=== PATIENT | female | born 1985 | race Caucasian/White ===

== ENCOUNTER 2021-02-02 08:53 | Emergency (ER) | payer MEDICAID, SELFPAY ==
[2021-02-02 09:14] VITALS: BP 128/80; PULSE 74; RESP 18; TEMP 36.2; O2SAT 98; BMI 31.0
--- NOTE | 2021-02-02 10:20 | ED.GENADULT ---
HPI - General Adult General Chief complaint: Extremity Injury, Lower Stated complaint: BACK PAIN Time Seen by Provider: 02/02/21 10:15 Source: patient Limitations: no limitations History of Present Illness HPI narrative: 35-year-old female is here today for complaining of lower back pain. Patient reports that she has been working at [employer] standing every day. Patient reports that the pain started with her left foot now the pain is in lower lumbar region bilaterally. Patient denies any injury, fall. Patient denies any urinary or fecal incontinence. Patient reports that she has been taking Tylenol without any effect. Patient reports that she has been dealing with this pain for over a month. Onset (ago): week(s) Location: back Radiation: extremity Severity: moderate Related Data Previous Rx's Medication Instructions Recorded cyclobenzaprine 10 mg tablet 10 mg PO QAM #10 tab 02/02/21 diazepam 5 mg tablet (Valium) 5 mg PO BEDTIME PRN #5 tab 02/02/21 Allergies Allergy/AdvReac Type Severity Reaction Status Date / Time No Known Allergies [NKA] Allergy Verified 02/02/21 09:13 Review of Systems Review of Systems: Constitutional : No Weight loss, No Fever, No Chills, No Night Sweats, No Fatigue, No Malaise ENT/Mouth : No Hearing loss, No Ear Pain, No Nasal Congestion, No Sinus Pain, No Hoarseness, No sore throat, No Rhinorrhea, No Swallowing Difficulty Eyes: No Eye Pain, No Swelling, No Redness, No Foreign Body, No Discharge, No Vision Changes Cardiovascular : No Chest Pain, No SOB, No Dyspnea on Exertion, No Orthopnea, No Edema, No Palpitations Respiratory : No Cough, No Sputum, No Wheezing, No Smoke Exposure, No Dyspnea Gastrointestinal : No Nausea, No Vomiting, No Diarrhea, No Constipation, No abdominal Pain, No Hematochezia, No Melena Genitourinary : no irregular bleeding, No Dysuria, No Urinary Frequency, No Hematuria, No Urinary Incontinence, No Urgency, No Flank Pain, No Urinary Flow Changes, No Hesitancy Musculoskeletal : No joint pain, Myalgias, No Joint Swelling Skin : No Skin Lesions, No rash Neuro : No Weakness, No Numbness, No Paresthesias, No Loss of Consciousness, No Dizziness, No Headache Yes all other systems are reviewed and are negative [facility] Past Medical History Medical History (Updated 02/02/21 @ 10:31 by Agustina Moreira [facility]) Patient denies medical problems Social History Social History Advance Directives: No Advance Directives Information Provided: No Patient : No Physical Exam Vital Signs: Vital Signs: Last Vital Signs Temp 97.2 F 02/02/21 09:14 Pulse 74 02/02/21 09:14 Resp 18 02/02/21 09:14 BP 128/80 02/02/21 09:14 Pulse Ox 98 02/02/21 09:14 Body Mass Index 31.0 Const: General: healthy appearing, no acute distress and well developed Nutritional Appearance: well nourished Orientation/consciousness: patient oriented x3 HENMT: Head: Yes normal to inspection, Yes normocephalic and Yes atraumatic Neck: Neck: Yes normal visual inspection, Yes full ROM and Yes trachea midline Thyroid: Thyroid normal Resp: Auscultation: clear to auscultation bilaterally Cardio: Rate: regular rate Rhythm: regular rhythm Heart sounds: S1 normal heart sound present GI: Inspection: Yes normal to inspection and No distended Palpation (GI): Soft to palpation, nontender, no guarding and No hepatosplenomegaly present Auscultation: normal bowel sounds : General: Yes no CVA tenderness Back/Spine/Pelvis: Back: no CVA tenderness Cervical Spine: normal cervical lordosis and cervical ROM normal Thoracic/Lumbar Spine: thoracic and lumbar spine normal to inspection and paraspinal muscle tenderness (Lower back bilaterally L>R) Skin: General skin exam: elasticity normal, turgor normal and dry skin Neuro: General: patient oriented x3 Extrem: General: Yes normal to inspection, Yes full ROM and Yes capillary refill normal Course Course Course Narrative: 35-year-old female with lower back pain. Patient reports that this pain started over a month ago. She states the pain started in her left foot now the pain is in lower back. Upon exam patient has a paraspinal muscle tenderness more on the left than the right. Took Tylenol at home. Denies any injury to this area. Patient is standing on her feet all day at work. Most likely her pain is from compensating and straining. Will send her home with muscle relaxer. I will send her home with cyclobenzaprine so she can take it in the morning and Valium she can take it at night. Patient was also instructed not to drive while taking this medication. Patient will need to follow-up with her PCP for physical therapy Discharge Plan Discharge Clinical Impression: Muscle strain Back pain Qualifiers: Back pain location: low back pain Chronicity: chronic Back pain laterality: bilateral Sciatica presence: unspecified whether sciatica present Qualified Code(s): M54.50 - Low back pain, unspecified Patient Disposition: Home, Self-Care Instructions: Low Back Strain (ED), Back Pain (ED), Lower Back Exercises (ED) Additional Instructions: You were seen here today for back pain and left leg pain. You are given medication that will help you with your muscle pain. Make sure you do not drive while taking this medication. Please follow-up with your primary care provider for possible physical therapy you may return to emergency department if her symptoms will get worse or if your experience any additional concerning symptoms Prescriptions: New cyclobenzaprine 10 mg tablet 10 mg PO QAM Qty: 10 RF: 0 diazepam [Valium] 5 mg tablet 5 mg PO BEDTIME PRN (Reason: muscle spasm) Qty: 5 RF: 0 Referrals: Allegra Yip MD [Primary Care Provider] - 2 days Stand Alone Forms: Work/School Release Interventions: ED Discharge Assessment Last Done: 02/02/21 10:49 Discharge Date/Time: 02/02/21 10:53
[2021-02-02] MEDS: Ibuprofen 600 MG TABLET PO (10:48)
== END 2021-02-02 10:53 | disposition home or self-care (01) ==
PROVIDERS: Emergency Provider Emergency Medicine; PCP Family Medicine
DX: S39.012A Strain of muscle, fascia and tendon of lower back, initial encounter (principal); X58.XXXA Exposure to other specified factors, initial encounter; Y93.9 Activity, unspecified; Y92.9 Unspecified place or not applicable; Y99.9 Unspecified external cause status
CPT/HCPCS: 99283

== ENCOUNTER 2021-02-13 12:36 | Outpatient (REF) | payer MEDICAID, SELFPAY ==
--- NOTE | ~2021-02-13 | XR_ITS ---
EXAMINATION: XR LUMBOSACRAL SPINE WITH OBLIQUES CLINICAL INFORMATION: Low back pain with left-sided sciatica. COMPARISON: None TECHNIQUE: AP, both oblique, and lateral views of the lumbar spine. Lateral view of the lumbosacral junction. FINDINGS: The vertebral bodies and posterior elements are normal. The disc spaces are preserved and the vertebral alignment is normal. The paraspinal soft tissues are normal. XR/XR lumbar spine 4V min IMPRESSION: 1. Unremarkable lumbar spine.
== END 2021-02-13 12:37 | disposition home or self-care (01) ==
LOC: HO.XRAY 12:36
PROVIDERS: PCP Family Medicine; Visit Provider Family Medicine
DX: M54.42 Lumbago with sciatica, left side (principal)
CPT/HCPCS: 72110

== ENCOUNTER 2021-03-17 14:00 | Outpatient (RCR) | payer MEDICAID, SELFPAY | END 2021-04-04 12:36 | disposition home or self-care (01) | LOC: HO.PT 14:00 | PROVIDERS: PCP Family Medicine; Visit Provider Family Medicine | DX: M72.2 Plantar fascial fibromatosis (principal); M54.42 Lumbago with sciatica, left side | CPT/HCPCS: 97110; 97161 ==

== ENCOUNTER 2021-09-07 08:35 | Emergency (ER) | payer MEDICAID, SELFPAY ==
--- NOTE | ~2021-09-07 | US_ITS ---
EXAMINATION: US PELVIS CLINICAL INFORMATION: Adnexal tenderness. COMPARISON: None TECHNIQUE: Ultrasound of the pelvis is performed using both transabdominal and transvaginal transducers along with Doppler. Transvaginal imaging is performed due to inadequate visualization transabdominally. FINDINGS: UTERUS: The uterus is anteverted anteflexed and measures 8.5 cm in length, 3.7 cm in AP and 4.7 cm in transverse dimension. The double wall endometrial thickness is 1.0 cm. The uterus is smooth in contour and has normal myometrial echogenicity. No visible fibroid. There are small nabothian cysts seen in the cervix. ADNEXA: Both ovaries are visualized. There is normal color flow to the adnexa. There is no ovarian torsion. There is no pelvic ascites or fluid collection. Right ovary measures 4.8 x 4.1 x 4.5 cm and volume 46.4 mL. There is an anechoic cyst measuring 4.6 x 3.4 x 4.1 cm with septation. Left ovary measures 2.1 x 1.8 x 2.0 cm. It appears unremarkable. There is mild left adnexal fullness. US/US pelvic ovarian doppler IMPRESSION: Unremarkable uterus. Small nabothian cysts in the cervix. Complex 4.6 cm cyst right ovary. Unremarkable left ovary.
--- NOTE | ~2021-09-07 | US_ITS ---
EXAMINATION: US PELVIS CLINICAL INFORMATION: Adnexal tenderness. COMPARISON: None TECHNIQUE: Ultrasound of the pelvis is performed using both transabdominal and transvaginal transducers along with Doppler. Transvaginal imaging is performed due to inadequate visualization transabdominally. FINDINGS: UTERUS: The uterus is anteverted anteflexed and measures 8.5 cm in length, 3.7 cm in AP and 4.7 cm in transverse dimension. The double wall endometrial thickness is 1.0 cm. The uterus is smooth in contour and has normal myometrial echogenicity. No visible fibroid. There are small nabothian cysts seen in the cervix. ADNEXA: Both ovaries are visualized. There is normal color flow to the adnexa. There is no ovarian torsion. There is no pelvic ascites or fluid collection. Right ovary measures 4.8 x 4.1 x 4.5 cm and volume 46.4 mL. There is an anechoic cyst measuring 4.6 x 3.4 x 4.1 cm with septation. Left ovary measures 2.1 x 1.8 x 2.0 cm. It appears unremarkable. There is mild left adnexal fullness. US/US pelvic and transvaginal IMPRESSION: Unremarkable uterus. Small nabothian cysts in the cervix. Complex 4.6 cm cyst right ovary. Unremarkable left ovary.
[2021-09-07 09:05] VITALS: BP 131/91; PULSE 50; RESP 16; TEMP 36.4; O2SAT 100; BMI 29.2
--- NOTE | 2021-09-07 10:55 | ED.GENADULT ---
HPI - General Adult General Chief complaint: General Medical Stated complaint: vag pain Time Seen by Provider: 09/07/21 10:09 Source: patient Mode of arrival: ambulatory Limitations: no limitations History of Present Illness HPI narrative: 36-year-old female presents for 2 days of vaginal itching and vaginal burning. States that today when she wiped after urinating that the toilet paper was streaked pink. Denies dysuria, urinary frequency or urgency. Endorses low pelvic pain. Patient did take Monistat for 2 days, but states that her vaginal discharge has been yellow greenish, and foul smelling. She is sexually active and not on control. She had a tubal ligation 10 years ago. She has had the same sex partner for the last 6 months. She is . Related Data Previous Rx's Medication Instructions Recorded cyclobenzaprine 10 mg tablet 10 mg PO QAM #10 tab 02/02/21 diazepam 5 mg tablet (Valium) 5 mg PO BEDTIME PRN #5 tab 02/02/21 cephalexin 500 mg capsule 500 mg PO QID 5 Days #20 cap 09/07/21 doxycycline hyclate 100 mg tablet 100 mg PO BID 7 Days #14 tab 09/07/21 Allergies Allergy/AdvReac Type Severity Reaction Status Date / Time No Known Allergies [NKA] Allergy Verified 02/02/21 09:13 Review of Systems Constitutional: Constitutional: Denies body ache(s), Denies chills, Denies fatigue, Denies fever(s), Denies headache(s), Denies malaise and Denies weakness Eyes: Eyes: Denies diplopia ENT: Denies vertigo, Denies dizziness, Denies otalgia, Denies headache(s), Denies mouth pain, Denies post nasal drip, Denies sinus pain, Denies sinus pressure, Denies sore throat and Denies throat swelling Cardiovascular: Cardiovascular: Denies chest pain, Denies syncope, Denies leg edema, Denies lightheadedness, Denies Loss of Consciousness, Denies palpitations and Denies dyspnea Respiratory: Respiratory: Denies chest congestion, Denies cough and Denies dyspnea Gastrointestinal: Gastrointestinal: Denies abdominal pain, Denies hematochezia, Denies constipation, Denies diarrhea and Denies vomiting Genitourinary: Genitourinary: Reports abnormal vaginal bleeding, Denies genital pruritis, Denies dysmenorrhea, Denies dysuria, Reports pelvic pain, Denies flank pain, Denies urinary urgency, Reports vaginal discharge, Reports vaginal odor and Reports vaginal pruritus Musculoskeletal: Musculoskeletal: Reports no additional musculoskeletal complaints Neurologic: Denies confusion, Denies vertigo, Denies dizziness, Denies syncope, Denies headache(s) and Denies weakness Psychiatric: Psychiatric: Denies anxiety, Denies confusion and Denies depression Endocrine: Endocrine: Denies fatigue and Denies palpitations Allergic/Immunologic: Allergic/Immunologic: Denies throat swelling PMFSH Past Medical History Medical History (Updated 09/07/21 @ 14:26 by MINDY Bryant) Patient denies medical problems Social History Social History Advance Directives: No Advance Directives Information Provided: No Physical Exam ED Vital Signs: Vital Signs - 24 hr 09/07/21 09:05 Temperature 97.6 F Pulse Rate 50 Respiratory Rate 16 Blood Pressure 131/91 H Pulse Oximetry 100 BMI result Body Mass Index 29.2 Const General: No confusion Nutritional Appearance: well nourished Orientation/consciousness: No confusion Limitations: no limitations HENMT Head: Yes normal to inspection, Yes normocephalic and Yes atraumatic Ears: hearing grossly normal bilaterally, external ears normal, TM's normal bilaterally and EAC's normal General nose exam: Normal external nose present Face and sinus: Yes normal facial exam and Yes sinuses nontender Mouth: Normal oral and palatal mucosa present Throat: Yes posterior oropharynx normal Eyes Conjunctivae: conjunctivae normal Pupils: Equal, round and reactive pupils present EOM: EOMs intact bilaterally Neck Neck: Yes full ROM, Yes no lymphadenopathy and Yes supple Resp Effort & Inspection: normal respiratory effort and able to speak in complete sentences Auscultation: clear to auscultation bilaterally, no crackles, no rales, no rhonchi and no wheezes Cardio Rate: regular rate Rhythm: regular rhythm Heart sounds: S1 normal heart sound present and S2 normal heart sound present GI Inspection: Yes normal to inspection Palpation (GI): Soft to palpation, nontender, no guarding and not rigid Percussion: Yes normal to percussion Auscultation: normal bowel sounds General: Yes no CVA tenderness External Female Exam: normal external appearance and normal appearance of the urethra Speculum Exam - Vagina: normal appearance of the vagina and normal palpation Speculum Exam - Cervix: normal appearance of the cervix and normal palpation Bimanual exam- vagina & uterus: normal bimanual exam, normal palpation, normal palpation and no cervical motion tenderness Bimanual Exam- Adnexa, other: No adnexal tenderness Back/Spine/Pelvis Back: no CVA tenderness Skin General skin exam: no rashes or lesions noted Neuro General: No confusion Cranial nerves: Yes Equal, round and reactive pupils present Extrem General: Yes normal to inspection and Yes full ROM Psych Appearance: grossly normal Affect: normal affect Attitude: cooperative Thought process: Normal thought process present Course Course Course Narrative: 36-year-old female presents for 2 days of vaginal pain, discharge, and pink blood on toilet paper today. Patient's last menstrual period was August 29, only lasted for 3 days, her menstrual period usually lasts for 6 days. On exam, patient is well-appearing, stable vitals, no CVA tenderness, she is tender in her lower abdomen and pelvis. Will do pelvic exam, get urine, U preg, BV, Trichomonas, yeast, chlamydia, gonorrhea testing Reevaluation(s) Reevaluation #1: Pelvic exam unremarkable, patient had no adnexal tenderness, no cervical motion tenderness, vaginal discharge was scant and patient did have pink discharge Reevaluation #2: Patient has +2 leukocyte esterase and +2 blood in her urine. She is not . She has no Trichomonas or yeast. Ultrasound shows a cyst in her right ovary. Will treat patient for gonorrhea and chlamydia, will also treat for UTI. Will refer patient to Gynecology for abnormal vaginal bleeding Medical Decision Making Lab Data Labs: Lab Results 09/07/21 09/07/21 09/07/21 Range/Units 11:13 11:13 11:13 Urine Color YELLOW Urine Appearance CLEAR Urine pH 6.0 (5.0-8.0) Ur Specific [place] 1.020 (1.005-1.025) Urine Protein NEG (NEG-TRACE) MG/DL Urine Glucose (UA) NEG (NEG) MG/DL Urine Ketones NEG (NEG) MG/DL Urine Blood 2+ H (NEG) Urine Nitrite NEG (NEG) Ur Leukocyte Esterase 2+ H (NEG) Urine RBC 1-4 (0) /HPF Urine WBC 1-4 (0-4) /HPF Ur Squamous Epith Cells 3+ /LPF Urine Bacteria TRACE /LPF Urine Test NEGATIVE (NEGATIVE) Chlam trachomat DNA PCR NOT DETECTED (Not Detect.) N.gonorrhoeae DNA (PCR) NOT DETECTED (Not Detect.) 09/07/21 Range/Units 12:07 Urine Color Urine Appearance Urine pH (5.0-8.0) Ur Specific [place] (1.005-1.025) Urine Protein (NEG-TRACE) MG/DL Urine Glucose (UA) (NEG) MG/DL Urine Ketones (NEG) MG/DL Urine Blood (NEG) Urine Nitrite (NEG) Ur Leukocyte Esterase (NEG) Urine RBC (0) /HPF Urine WBC (0-4) /HPF Ur Squamous Epith Cells /LPF Urine Bacteria /LPF Urine Test (NEGATIVE) Chlam trachomat DNA PCR TNP (Not Detect.) N.gonorrhoeae DNA (PCR) TNP (Not Detect.) Discharge Plan Discharge Clinical Impression: UTI (urinary tract infection), Concern about STD in female without diagnosis, Abnormal vaginal bleeding Patient Disposition: Home, Self-Care Instructions: Urinary Tract Infection in Women (ED) Additional Instructions: Please call park interpretive specialist at [phone] I have referred you to them, they should be calling you. I want you evaluated for your vaginal bleeding and ovarian cyst. You have no Trichomonas or vaginal yeast today. The test for gonorrhea and chlamydia will return in a few days, until then we will treat her with doxycycline. If you call in those tests have come back negative you can stop your doxycycline. However I do want you to continue to take your cephalexin. You have a urinary tract infection and this is to treat the urinary tract infection. Please return to emergency room for any new or concerning symptoms. Prescriptions: New doxycycline hyclate 100 mg tablet 100 mg PO BID 7 Days Qty: 14 0RF cephalexin 500 mg capsule 500 mg PO QID 5 Days Qty: 20 0RF No Action cyclobenzaprine 10 mg tablet 10 mg PO QAM Qty: 10 0RF diazepam [Valium] 5 mg tablet 5 mg PO BEDTIME PRN (Reason: muscle spasm) Qty: 5 0RF Referrals: Eliseo Laurent MD [Physician] - Interventions: ED Discharge Assessment Last Done: 09/07/21 14:46 Discharge Date/Time: 09/07/21 14:48
[2021-09-07 12:19] LABS: Appearance Urine CLEAR; Color Urine YELLOW; Glucose Urine UA NEG (NEG); Leukocyte Esterase Urine 2+ (NEG); Nitrite Urine NEG (NEG); UACC Culture Trigger YES; UPreg QC Valid YES; Urine Blood 2+ (NEG); Urine Ketones NEG (NEG); Urine Pregnancy NEGATIVE (NEGATIVE); Urine Protein NEG (NEG-TRACE)
[2021-09-07 13:06] LABS: Squamous Epithelial Cell Urine 3+ /LPF
[2021-09-07 13:08] LABS: Bacteria Urine TRACE /LPF
[2021-09-07 13:50] LABS: CT PCR NOT DETECTED (Not Detect.); NG PCR NOT DETECTED (Not Detect.)
[2021-09-07] MEDS: cefTRIAXone sodium 500 MG, Lidocaine HCl 1 % MPF 1 ML IM (14:39)
[2021-09-08 10:55] LABS: BV Int Neg Control Negative (Negative); BV Int Pos Control Positive (Positive)
== END 2021-09-07 14:48 | disposition home or self-care (01) ==
PROVIDERS: Physician Assistant; Emergency Provider Emergency Medicine; PCP Family Medicine
DX: N39.0 Urinary tract infection, site not specified (principal); N93.9 Abnormal uterine and vaginal bleeding, unspecified; N83.201 Unspecified ovarian cyst, right side; Z20.2 Contact with and (suspected) exposure to infections with a predominantly sexual mode of transmission; Z98.51 Tubal ligation status
CPT/HCPCS: 76830; 76856; 81001; 81003; 81025; 87086; 87480; 87491; 87510; 87591; 87660; 93975; 96372; 99281; 99284; J0696

== ENCOUNTER → 2021-09-15 08:40 | Outpatient (BNVA) | payer MEDICAID, SELFPAY | PROVIDERS: PCP Family Medicine; Visit Provider Advanced Practice Midwife | DX: N83.291 Other ovarian cyst, right side (principal) | CPT/HCPCS: 81025; 99202 ==

== ENCOUNTER 2021-10-20 15:07 | Outpatient (REF) | payer MEDICAID, SELFPAY ==
--- NOTE | ~2021-10-20 | US_ITS ---
EXAMINATION: US PELVIS CLINICAL INFORMATION: Right sided ovarian cyst COMPARISON: Previous pelvic ultrasound August 2021 TECHNIQUE: Ultrasound of the pelvis is performed using both transabdominal and transvaginal transducers along with Doppler. Transvaginal imaging is performed due to inadequate visualization transabdominally. FINDINGS: Uterus: The uterus is anteverted and measures 10 x 4.7 x 5 cm. The double wall endometrial thickness is 4 mm. The uterus is smooth in contour and has normal myometrial echogenicity. No visible fibroid. There are nabothian cysts in the cervix. Adnexa: Both ovaries are visualized. There is no pelvic ascites or fluid collection. There are prominent pelvic vessels questionable for pelvic congestion, left greater than right. Right ovary measures 3.5 x 2.1 x 2.2 cm. there is a 2.1 x 1.5 x 1.8 cm simple right ovarian cyst. There is a 1.2 x 0.7 x 0.4 cm adjacent minimally complex cyst with slightly thickened wall and septation. The previously identified 4.6 x 3.4 x 4.1 cm slightly complex right ovarian cyst is no longer seen. Left ovary measures 3.1 x 1.6 x 2.4 cm. US/US pelvic and transvaginal IMPRESSION: Normal-appearing uterus and left ovary. 2 small right ovarian cysts.
== END 2021-10-20 15:08 | disposition home or self-care (01) ==
LOC: HO.US 15:07
PROVIDERS: Visit Provider Advanced Practice Midwife
DX: N83.291 Other ovarian cyst, right side (principal)
CPT/HCPCS: 76830; 76856

== ENCOUNTER → 2021-11-06 09:00 | Outpatient (BNVA) | payer MEDICAID, SELFPAY | PROVIDERS: PCP Family Medicine; Visit Provider Advanced Practice Midwife | DX: N83.291 Other ovarian cyst, right side (principal) | CPT/HCPCS: 99212 ==

== ENCOUNTER 2023-05-19 11:06 | Emergency (ER) | payer MEDICAID, SELFPAY ==
--- NOTE | ~2023-05-19 | CT_ITS ---
CT head/brain wo IV con CLINICAL INFORMATION: Reason for Exam dizzness COMPARISON: No prior CT scan available for comparison. TECHNIQUE: Department standard protocol. This CT examination was performed using dose optimization techniques as appropriate, variously including the following: *Automated exposure control *Adjustment of mA and/or kV according to patient size (this includes techniques or standardized protocols for targeted exams where dose is matched to indication/reason for exam; i.e. extremities or head) *Use of iterative reconstruction technique DLP: 650zzz mGy-cm FINDINGS: CEREBRAL HEMISPHERES: There is no evidence of intra-axial or extra-axial mass, hemorrhage or acute infarct. BRAIN PARENCHYMA: Normal adams-white matter differentiation. SUBDURAL SPACE: No bleed. BASAL GANGLIA AND PINEAL GLAND: Unremarkable VENTRICLES: Symmetric and normal in size. CEREBELLUM AND BRAINSTEM: No space-occupying mass, hemorrhage or acute infarct. CEREBELLOPONTINE ANGLES: No lesion found. ORBITS: No intraorbital mass. VESSELS: Unremarkable SKULL BASE: Unremarkable INCLUDED SINUSES AT SKULL BASE: Clear SKULL AND SKIN: No fracture or bone lesion found. CT/CT head/brain wo IV con IMPRESSION: No CT evidence of intracranial space-occupying mass, bleed or infarct.
[2023-05-19 11:17] VITALS: BP 140/86; BP 142/90; PULSE 81; PULSE 85; RESP 16; TEMP 36.5; O2SAT 100; BMI 31.3
--- NOTE | 2023-05-19 11:29 | ED_ITS ---
HPI - General Adult General Chief complaint: Dizziness Stated complaint: DIZZINESS NOT FEELING WELL Time Seen by Provider: 05/19/23 11:15 Source: patient and EMS Mode of arrival: EMS History of Present Illness HPI narrative: This is a 37 years old female brought in by ambulance with a chief complaint of dizziness near syncopal episode. 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 911 was called. Patient denies any major medical problem she is feeling better now Onset (ago): hour(s) (1) Radiation: non-radiation Severity: moderate Relieving factors: none Exacerbating factors: none Associated symptoms: denies other symptoms Related Data Home Medications Medication Instructions Recorded Confirmed No Known Home Meds 11/06/21 11/06/21 Allergies Allergy/AdvReac Type Severity Reaction Status Date / Time No Known Allergies [NKA] Allergy Verified 05/19/23 11:17 Review of Systems 2 ENT: Reports system reviewed and no additional complaints, except as documented Gastrointestinal: Gastrointestinal: Reports no additional gastrointestinal complaints Neurologic: Reports system reviewed and no additional complaints, except as documented [facility] Past Medical History Source: unable to obtain Onset Date is defined in the Problem List Problems that require an onset date and time if occurred within 24 hrs of arrival to the ED Aortic Dissection and Rupture; Neurologic impairment; Cardiopulmonary Arrest; Endotracheal Intubation; Insertion or Replacement of Mechanical Circulatory Assist Device Medical History Patient denies medical problems Surgical History H/O tubal ligation Social History Social History Alcohol intake: current Alcohol intake frequency: holidays/special occasions only Patient Tobacco Use Status: Never used Tobacco Smoked in Last 30 Days: No Use of substances other than those prescribed or required for medical reasons: No Advance Directives: No Advance Directives Information Provided: No Patient : No Physical Exam ED Vital Signs: Vital Signs - 24 hr 05/19/23 11:17 05/19/23 14:24 Temperature 97.7 F 98.5 F Pulse Rate 85 92 Respiratory Rate 16 16 Blood Pressure 140/86 H 138/74 Pulse Oximetry 100 99 Oxygen Delivery Method Room Air Room Air BMI result Body Mass Index 31.3 Const General: cooperative Nutritional Appearance: well nourished Orientation/consciousness: patient oriented x3 Limitations: no limitations HENMT Head: Yes normal to inspection General nose exam: Normal nares present Face and sinus: Yes normal facial exam Mouth: Normal oral and palatal mucosa present Teeth and gingiva: dentition normal Throat: Yes posterior oropharynx normal Neck Neck: Yes normal visual inspection Chest Chest palpation & inspection: normal inspection of the chest Breast/axilla inspection: normal inspection of the breasts Cardio Jugular venous distension: no JVD Rate: regular rate Rhythm: regular rhythm GI Inspection: Yes normal to inspection Palpation (GI): Soft to palpation, not firm and nontender Auscultation: normal bowel sounds Skin General skin exam: no rashes or lesions noted Lesions: no lesions Rashes: no rashes Neuro General: patient oriented x3 Extrem General: Yes normal to inspection Left upper extremity: full ROM Right lower extremity: normal to inspection Course Reevaluation(s) Reevaluation #1: Feels much better asymptomatic at this time ambulatory to the bathroom without any problem anticipate discharge Medications Administered Discontinued Medications Generic Name Dose Route Start Last Admin Trade Name Freq PRN Reason Stop Dose Admin Acetaminophen 975 mg 05/19/23 12:51 05/19/23 12:56 Acetaminophen 325 Mg Tablet PO 05/19/23 12:52 975 mg ONCE ONE Administration Medical Decision Making Medical Decision Making [facility] Narrative: Patient presented to emergency room with a chief complaint of dizziness near syncopal episode while at work she was observed in the emergency room several hours in the air sampling and monitoring she remained stable blood work was normal including troponin ST-T also was normal as 15:44 much better Differential Diagnosis Differential Diagnoses: The differential diagnosis associated with the presentation includes Near syncopal episode/vasovagal syncope acute NC ectopic Lab Data [facility] Lab Attestation statement: I reviewed the patient's lab results. 05/19/23 11:45 05/19/23 11:45 Labs: Lab Results 05/19/23 Range/Units 11:45 WBC 6.6 (4.8-10.8) X10*3/uL RBC 4.19 L (4.20-5.50) X10*6/uL Hgb 12.5 (12.0-16.0) g/dl Hct 37.4 (37.0-47.0) % MCV 89.3 (80.0-98.0) fL MCH 29.8 (27.0-33.0) pg MCHC 33.4 (31.0-35.0) g/dl RDW 13.3 (11.0-16.0) % Plt Count 231 (160-400) X10*3/uL MPV 8.8 L (9.4-12.3) fL Immature Gran % (Auto) 0.2 (0.0-0.4) % Neut % (Auto) 64.2 (45-73) % Lymph % (Auto) 27.5 (20-40) % [place] % (Auto) 7.1 (2-11) % Eos % (Auto) 0.5 (0-4) % Baso % (Auto) 0.5 (0-2) % Lymph # (Auto) 1.8 (1.2-4.9) X10*3/uL [place] # (Auto) 0.5 (0.1-1.2) X10*3/uL Eos # (Auto) 0.0 (0.0-0.4) X10*3/uL Baso # (Auto) 0.0 (0.0-0.2) X10*3/uL Abs Immat Gran (auto) 0.01 (0.00-0.03) X10*3/uL Absolute Neuts (auto) 4.3 (2.0-8.3) x10*3/uL Absolute Nucleated RBC 0.000 (0.0-0.012) X10*3/uL Nucleated RBC % (auto) 0.0 (0.0-0.2) /100WBC Sodium 141 (135-145) mmol/L Potassium 4.5 (3.3-5.1) mmol/L Chloride 112 H (96-108) mmol/L Carbon Dioxide 20 L (22-29) mmol/L Anion Gap 14 (12-20) BUN 14 (9-16) mg/dL Creatinine 0.74 (0.5-1.4) mg/dL Estim Creat Clear Calc 120.4 Estimated GFR > 60 Random Glucose 106 (60-115) mg/dL Calcium 9.5 (8.4-10.2) mg/dL Total Bilirubin 0.3 (0.0-1.0) mg/dL AST 22 (5-31) U/L ALT 22 (0-31) U/L Alkaline Phosphatase 62 (39-117) U/L Troponin I High Sens < 2.7 (<3.5-17.0) ng/L Total Protein 8.2 H (6.5-8.0) g/dL Albumin 4.3 (3.5-5.0) g/dL Beta HCG, Quant < 2 mIU/mL Independent Interpretation I performed an independent interpretation of an: EKG Interpretation: Eye patch Ramírez reviewed the EKG normal sinus rhythm rate [address]-T changes Independent Historian Clinical information obtained from an independent historian. History obtained from or confirmed by: EMS Discharge Plan Discharge Clinical Impression: Near syncope Patient Disposition: Home, Self-Care Instructions: Near Syncope (ED) Prescriptions: No Action No Known Home Meds Referrals: Allegra Yip MD [Primary Care Provider] - 2 days Stand Alone Forms: Work/School Release Interventions: ED Discharge Assessment Last Done: 05/19/23 16:06 Discharge Date/Time: 05/19/23 16:09
--- NOTE | 2023-05-19 11:42 | ECG_ITS ---
Test Reason : CHEST PAIN Blood Pressure : / mmHG Vent. Rate : 074 BPM Atrial Rate : 074 BPM P-R Int : 168 ms QRS Dur : 090 ms QT Int : 404 ms P-R-T Axes : 051 005 016 degrees QTc Int : 448 ms Normal sinus rhythm Normal ECG When compared with ECG of 06-APR-2015 21:20, No significant change was found Referred By: Juan Devlin Electronically Signed By:Humberto De La Garza
[2023-05-19 11:50] LABS: MANUAL DIFF FLAG NO
[2023-05-19 11:51] LABS: Basophils Percent Auto 0.5 % (0-2); Eosinophils Percent Auto 0.5 % (0-4); Hematocrit 37.4 % (37.0-47.0); Hemoglobin 12.5 g/dl (12.0-16.0); Imm Gran Abs Auto 0.01 X10*3/uL (0.00-0.03); Imm Gran Pct Auto 0.2 % (0.0-0.4); Lymphocytes Absolute Auto 1.8 X10*3/uL (1.2-4.9); Lymphocytes Percent Auto 27.5 % (20-40); Mean Corpuscular HGB Conc 33.4 g/dl (31.0-35.0); Mean Corpuscular Hemoglobin 29.8 pg (27.0-33.0); Mean Corpuscular Volume 89.3 fL (80.0-98.0); Mean Platelet Volume 8.8 fL (9.4-12.3); Monocytes Absolute Auto 0.5 X10*3/uL (0.1-1.2); Monocytes Percent Auto 7.1 % (2-11); Neutrophils Absolute Auto 4.3 x10*3/uL (2.0-8.3); Neutrophils Percent Auto 64.2 % (45-73); Platelet Count 231 X10*3/uL (160-400); Red Blood Count 4.19 X10*6/uL (4.20-5.50); Red Cell Distribution Width 13.3 % (11.0-16.0); White Blood Count 6.6 X10*3/uL (4.8-10.8)
--- NOTE | 2023-05-19 11:51 | PC.NURSE ---
a&ox4, vss and up to date. pt presents to the ED d/t sudden onset dizziness/lightheadedness/blurred vision/nausea. pt denies vomiting/diarrhea. pt states she was at work when the symptoms appeared out of nowhere when bending over/standing up repeatedly. pt c/o 8/10 RUBY at this time. no sob/wob noted. respirations even and unlabored. labs obtained/sent to lab by tech. pt aware of plan of care at this time. plan of care ongoing. call walker placed within reach.
[2023-05-19 12:12] LABS: Alanine Aminotransferase 22 U/L (0-31); Albumin Level 4.3 g/dL (3.5-5.0); Alkaline Phosphatase 62 U/L (39-117); Anion Gap 14 (12-20); Aspartate Amino Transferase 22 U/L (5-31); Bilirubin Total 0.3 mg/dL (0.0-1.0); Blood Urea Nitrogen 14 mg/dL (9-16); Calcium 9.5 mg/dL (8.4-10.2); Carbon Dioxide 20 mmol/L (22-29); Chloride 112 mmol/L (96-108); Creatinine Clr Calc Pharmacy 120.4; Estimated Glomerular Filt Rate > 60; Glucose Random 106 mg/dL (60-115); HCG Quantitative < 2 mIU/mL; Potassium 4.5 mmol/L (3.3-5.1); Sodium 141 mmol/L (135-145); Total Protein 8.2 g/dL (6.5-8.0); Troponin-I High Sensitivity < 2.7 ng/L (<3.5-17.0)
--- NOTE | 2023-05-19 12:35 | PC.NURSE ---
pt to CT at this time.
[2023-05-19] MEDS: Acetaminophen 325 MG TABLET 975 MG PO (12:56)
--- NOTE | 2023-05-19 12:57 | PC.NURSE ---
medication administered per provider order. pt c/0 12/06 headache at this time. will reassess.
[2023-05-19 14:24] VITALS: BP 138/74; PULSE 92; RESP 16; TEMP 36.9; O2SAT 99
== END 2023-05-19 16:09 | disposition home or self-care (01) ==
PROVIDERS: Emergency Provider Emergency Medicine; PCP Family Medicine
DX: R42 Dizziness and giddiness (principal); R07.89 Other chest pain; Z79.899 Other long term (current) drug therapy
CPT/HCPCS: 36415; 70450; 80053; 84484; 84702; 85025; 93005; 99284; 99285

== ENCOUNTER → 2023-05-19 11:42 | Outpatient (BNV) | payer MEDICAID, SELFPAY | PROVIDERS: Emergency Provider Emergency Medicine; PCP Family Medicine; Visit Provider Internal Medicine Cardiovascular Disease | DX: R07.9 Chest pain, unspecified (principal) | CPT/HCPCS: 93010 ==

== ENCOUNTER 2023-07-03 18:40 | Outpatient (REF) | payer MEDICAID, SELFPAY ==
[2023-07-09 23:48] LABS: C. trachomatis RNA TMA NOT DETECTED (NOT DETECTED); N. gonorrhoeae RNA TMA NOT DETECTED (NOT DETECTED)
[2023-07-10 00:03] LABS: Trichomonas (NAAT) NOT DETECTED (NOT DETECTED)
[2023-07-10 12:49] LABS: HPV mRNA E6/E7 rflx Not Detected (Not Detected)
== END 2023-07-03 18:41 | disposition home or self-care (01) ==
LOC: HO.HHCLNP 18:40
PROVIDERS: Visit Provider Family Medicine
DX: Z12.4 Encounter for screening for malignant neoplasm of cervix (principal); Z11.51 Encounter for screening for human papillomavirus (HPV)
CPT/HCPCS: 36415; 87491; 87591; 87624; 87661; 88142

== ENCOUNTER 2023-07-15 11:20 | Outpatient (REF) | payer MEDICAID, SELFPAY ==
[2023-07-15 14:24] LABS: Cholesterol 185 mg/dL (<200); HDL Cholesterol 46 mg/dL (>40); LDL Cholesterol Calculated 125 mg/dL (<100); Triglycerides 73 mg/dL (<150); Vitamin D 25-OH Total 26.6 ng/mL (>30)
== END 2023-07-15 11:21 | disposition home or self-care (01) ==
LOC: HO.HHCL 11:20
PROVIDERS: Visit Provider Family Medicine
DX: Z00.00 Encounter for general adult medical examination without abnormal findings (principal); Z13.6 Encounter for screening for cardiovascular disorders; E55.9 Vitamin D deficiency, unspecified
CPT/HCPCS: 36415; 80061; 82306

== ENCOUNTER 2023-12-20 10:09 | Outpatient (REF) | payer MEDICAID, SELFPAY ==
--- NOTE | ~2023-12-20 | XR_ITS ---
EXAMINATION: XR ELBOW, RIGHT CLINICAL INFORMATION: Right elbow injury COMPARISON: None available. TECHNIQUE: AP, lateral, and oblique views of the right elbow. FINDINGS: The bones and soft tissues are normal. No fracture or joint effusion. Alignment is anatomic. Joint spaces are maintained. XR/XR elbow RT min 3V IMPRESSION: Normal right elbow. Electronically signed by: Gary Kendall MD 12/26/2023 10:01 AM EDT
== END 2023-12-20 10:10 | disposition home or self-care (01) ==
LOC: HO.HHCX 10:09
PROVIDERS: Visit Provider Family Medicine
DX: M77.11 Lateral epicondylitis, right elbow (principal)
CPT/HCPCS: 73080

== ENCOUNTER 2024-08-10 10:20 | Outpatient (REF) | payer MEDICAID, SELFPAY ==
[2024-08-10 11:20] LABS: MANUAL DIFF FLAG NO
[2024-08-10 11:37] LABS: Basophils Percent Auto 0.5 % (0-2); Eosinophils Absolute Auto 0.1 X10*3/uL (0.0-0.4); Eosinophils Percent Auto 0.8 % (0-4); Hematocrit 43.6 % (37.0-47.0); Hemoglobin 14.2 g/dl (12.0-16.0); Imm Gran Abs Auto 0.01 X10*3/uL (0.00-0.03); Imm Gran Pct Auto 0.2 % (0.0-0.4); Lymphocytes Absolute Auto 2.1 X10*3/uL (1.2-4.9); Lymphocytes Percent Auto 33.2 % (20-40); Mean Corpuscular HGB Conc 32.6 g/dl (31.0-35.0); Mean Corpuscular Hemoglobin 30.4 pg (27.0-33.0); Mean Corpuscular Volume 93.4 fL (80.0-98.0); Mean Platelet Volume 9.9 fL (9.4-12.3); Monocytes Absolute Auto 0.4 X10*3/uL (0.1-1.2); Monocytes Percent Auto 6.8 % (2-11); Neutrophils Absolute Auto 3.7 x10*3/uL (2.0-8.3); Neutrophils Percent Auto 58.5 % (45-73); Platelet Count 283 X10*3/uL (160-400); Red Blood Count 4.67 X10*6/uL (4.20-5.50); Red Cell Distribution Width 12.8 % (11.0-16.0); White Blood Count 6.3 X10*3/uL (4.8-10.8)
--- OUTSIDE RECORDS SUMMARY | 2024-08-10 11:47 | XMS_ITS | Clinical Summary ---
Author Organization [address] [place] [address] Address [address] [place] [address] Phone Care Team Providers Care Health Care Consultant Name Role Phone Allegra Yip MD Primary Care Provider [phone]- [phone] Allergies No known active allergies Medications oxyCODONE (ROXICODONE) 5 mg immediate release tablet Take 1 tablet (5 mg total) by mouth every 4 (four) hours if needed for severe pain. Max Daily Amount: 30 mg 12 tablet Active Additional Information Patient not taking.Reported on 07/21/2024 acetaminophen (TYLENOL) 500 mg tablet Take 2 tablets (1,000 mg total) by mouth every 8 (eight) hours for 5 days. 30 tablet 07/17/19 Active Problems Problem Noted Date Diagnosed Date Acute gallstone pancreatitis 07/11/2024 Resolved Problems Problem Noted Date Diagnosed Date Resolved Date Calculus of gallbladder with out cholecystitis without obstruction 07/10/2024 07/11/2024 Encounters Date Type Department Care Team Description 07/21/2024 3:15 PM EDT Office Visit General Surgery [address] [phone] Viola Puente MD Chronic cholecystitis with calculus (Primary Dx) 07/11/2024 1:05 PM EDT - 07/11/2024 3:15 PM EDT Surgery [facility] [place] [address] [place] [phone] Bartolo Cabrera DO CHOLECYSTECTOMY LAPAROSCOPIC 07/11/2024 10:00 AM EDT Anesthesia Event [facility] OR [address] [place] [phone] Meir Argueta DO 07/10/2024 11:27 PM EDT - 07/11/2024 5:10 PM EDT Emergency [facility] [address] [place] [address] Seth Dewey MD Acute gallstone pancreatitis (Primary Dx); Calculus of gallbladder without cholecystitis without obstruction Discharge Disposition: Home or Self Care from Last 3 Months Surgical History Surgery Date Site/Laterality Comments CHOLECYSTECTOMY Social History Tobacco Use Types Packs/Day Years Used Date Smoking Tobacco: Never Smokeless Tobacco: Never Tobacco Cessation:Counseling Given: Not Answered Alcohol Use Standard Drinks/Week Comments Not Currently 0 (1 standard drink = 0.6 oz pur e alcohol) Interpersonal Safety Answer Date Record ed Physical Abuse 07/11/2024 Verbal Abuse 07/11/2024 Comments Unknown Sex and Gender Information Value Date Recorded Sex Assigned at Not on file Legal Sex Female 1:46 AM EST Gender Identity Not on file Sexual Orientation Not on file Travel History Travel Start Travel End [place] 06/12/2024 07/10/2024 [place] 06/12/2024 07/10/2024 Obstetrics History Last Filed Vital Signs Vital Sign Reading Time Taken Comments Blood Pressure 127/70 07/21/2024 3:06 PM EDT Pulse 74 07/21/2024 3:06 PM EDT Temperature 36.4 ??C (97.5 ??F) 07/21/2024 3:06 PM ED T Respiratory Rate 16 07/11/2024 12:56 PM EDT Oxygen Saturation 100% 07/11/2024 2:30 PM EDT Inhaled Oxygen Concentration - - Weight 88.3 kg (194 lb 9.6 oz) 07/21/2024 3:06 P M EDT Height 171.5 cm (5' 7.5 ) 07/21/2024 3:06 PM EDT Body Mass Index 30.03 07/21/2024 3:06 PM EDT Plan of Treatment Health Maintenance Due Date Last Done Comments Hepatitis C Screening 04/01/2022 Social Influencers of Health Screening 04/01/2022 COVID-19 Vaccine ( season) 2023 05/24/2021, 08/06/2020 Depression Screening 07/02/2024 07/03/2023 Influenza Vaccine (Season Ended) 2024 03/09/2022, 05/14/2019, 01/30/2018, Additional history exists Cervical Cancer Screening: Pap Smear 07/02/2026 07/03/2023 Cholesterol Screening (Lipid Panel) 07/14/2028 07/15/2023 DTaP,Tdap,and Td Vaccines (9 - Td or Tdap) 12/19/2033 12/20/2023, 07/29/2013, 04/08/2012, Additional history exists IPV Vaccines Completed 10/27/1990, 04/1989, 12/28/1986, Additional history exists MMR Vaccines Completed 10/27/1990, 06/27/1989 Hepatitis B Vaccines Completed 06/30/1996, 10/28/1995, 09/28/1995 HIV Screening Completed 03/09/2022 HIB Vaccines Aged Out No longer eligi ble based on patient's age to complete this topic HPV Vaccines Aged Out No longer eligi ble based on patient's age to complete this topic Hepatitis A Vaccines Aged Out No long er eligible based on patient's age to complete this topic Meningococcal ACWY Vaccine Aged Out N o longer eligible based on patient's age to complete this topic Meningococcal B Vaccine Aged Out No l onger eligible based on patient's age to complete this topic Pneumococcal Vaccine: Pediatrics (0 to 5 Years) and At-Risk Patients (6 to 64 Years) Aged Out No longer eligible based on patient's age to complete this topic RSV Immunization Patients Under 20 months Aged Out No longer eligible based on patient's age to complete this topic Varicella Vaccines Aged Out No longer eligible based on patient's age to complete this topic Procedures Procedure Name Priority Date/Time Associated Diagnosis Comments OXYGEN THERAPY, ADULT Routine 07/11/2024 11:41 AM EDT TISSUE EXAM Routine 07/11/2024 10:49 AM EDT Calculus of gallbladder without cholecystitis without obstruction TH AN ENDOTRACHEAL(NO CHARGE) Routine 07/11/2024 10:33 AM EDT CHOLECYSTECTOMY LAPAROSCOPIC 07/11/2024 10:07 AM EDT Calculus of gallbladder without cholecystitis without obstruction CT ABDOMEN PELVIS W CONTRAST STAT 07/11/2024 4:58 AM EDT US ABDOMEN LIMITED STAT 07/11/2024 2: 32 AM EDT POC , URINE DIAGNOSTIC STAT 07/10/2024 11:34 PM EDT CBC WITH AUTO DIFFERENTIAL STAT 07/10/2024 10:15 PM EDT LIPASE STAT 07/10/2024 10:15 PM EDT COMPREHENSIVE METABOLIC PANEL STAT 07/10/2024 10:15 PM EDT CBC AND DIFFERENTIAL STAT 07/10/2024 10:15 PM EDT from Last 3 Months Results * Tissue exam (07/11/2024 10:49 AM EDT) Final Diagnosis A. Gallbladder, cholecystectomy: - Chronic cholecystitis and cholelithiasis. 07/14/2024 11:29 AM EDT [facility] Gross Description A. Gallbladder, : Labeled gallbladder . Received in formalin is a 6.2 x 3.2 x 2.1 cm gallbladder, including attached cystic duct with a diameter of 0.1 cm at the margin. No periductal lymph node is identified. The lumen contains 30 cc of green-brown bile and a 2.8 cm aggregate of friable black choleliths ranging from less than 0.1 cm to 0.3 cm in greatest dimension. The mucosa is diffusely bile-stained green and velvety. The wall (muscularis) thickness measures up to 0.1 cm. The serosa is inked luke, and the adventitial margin is inked green. Senior Integration Developer sections are submitted in one cassette including gallbladder (fundus, body and neck), duct margin (inked red), and cross section adjacent to duct margin (inked blue), five pieces. JUDY 07/14/2024 11:29 AM EDT [facility] Disclaimer Unless otherwise specified, all tissue is 10% NB formalin fixed and paraffin embedded. 07/14/2024 11:29 AM EDT [facility] Tissue Gallbladder structure / Unknown 07/11/2024 10:49 AM EDT 07/13/2024 5:13 AM EDT Bartolo Cabrera DO LAB PATHOLOGY ORDERABLES Final Result [facility] [address] [place] [address], * TH AN ENDOTRACHEAL(NO CHARGE) (07/11/2024 10:33 AM EDT) Narrative Adam Scott CRNA - 07/11/2024 10:33 AM EDT Adam Scott CRNA ? 07/11/2024 10:34 AM General Information and Staff Patient location during procedure: OR Performed by: Adam Scott CRNA Authorized by: Meir Argueta DO ?? Intubation Airway not difficult Urgency: elective Final Airway Details Successful airway: ETT Cuffed: yes Successful intubation technique: direct laryngoscopy Endotracheal tube insertion site: oral Blade: Moni Blade size: #3 ETT size (mm): 7.0 Cormack-Lehane Classification: grade I - full view of glottis Placement verified by: chest auscultation, capnometry and palpation of cuff Cuff volume (mL): 7 Measured from: lips ETT to lips (cm): 21 Number of attempts at approach: 1Final airway type: endotracheal airway Indications and Patient Condition Indications for airway management: anesthesia Spontaneous ventilation: present Sedation level: Yes Preoxygenated: yes Soft Tissue Damage: No Dentition Unchanged: Yes Patient position: reverse Trendelenburg Mask difficulty assessment: 1 - vent by mask Meir Argueta DO ANESTHESIA ORDERABLES Final Res ult * CT Abdomen Pelvis w Contrast (07/11/2024 4:58 AM EDT) Anatomical Region Laterality Modality Body Computed Tomogra phy 07/11/2024 5:16 AM EDT Impressions 07/11/2024 5:16 AM EDT Impression: Cholelithiasis. Trace pericholecystic fluid. Right upper quadrant ultrasound recommended This document has been electronically signed by: Jose Juan Nielson MD on 07/11/2024 05:16:43 Narrative 07/11/2024 5:16 AM EDT INDICATION: epigastric / ruq pain CT abdomen and pelvis with contrast Comparison: None Findings: No consolidation or effusion. The gallbladder is distended. Tiny gallstones are present. Trace pericholecystic fluid. The liver, spleen, adrenal glands, pancreas, kidneys, ureters and bladder appear within normal limits Uterus and adnexa are unremarkable. Normal appendix. No bowel obstruction or free air. No free fluid, abscess or significant adenopathy. No acute osseous finding. Procedure Note Jose Juan Nielson MD - 07/11/2024 INDICATION: epigastric / ruq pain CT abdomen and pelvis with contrast Comparison: None Findings: No consolidation or effusion. The gallbladder is distended. Tiny gallstones are present. Trace pericholecystic fluid. The liver, spleen, adrenal glands, pancreas, kidneys, ureters andbladder appear within normal limits Uterus and adnexa are unremarkable. Normal appendix. No bowel obstruction or free air. No free fluid, abscess or significant adenopathy. No acute osseous finding. IMPRESSION: Impression: Cholelithiasis. Trace pericholecystic fluid. Right upper quadrant ultrasound recommended This document has been electronically signed by: Jose Juan Nielson MD on 07/11/2024 05:16:43 us [address]EN IMG CT PROCEDURES Final Result * US Abdomen Limited (07/11/2024 2:32 AM EDT) Anatomical Region Laterality Modality Body Ultrasound 07/11/2024 3:00 AM EDT Impressions 07/11/2024 3:00 AM EDT Distended gallbladder with stones and sludge. No additional findings to suggest acute cholecystitis. Follow-up as needed. This document has been electronically signed by: Damián Woods MD on 07/11/2024 03:00:00 Narrative 07/11/2024 3:00 AM EDT INDICATION: r/o cholecystitis US abdomen limited Comparison: None Findings: The visualized pancreas is normal. Inferior vena cava normal caliber. The liver is normal in size and echotexture. There is no intrahepatic bile duct dilatation. The common duct is 6 mm in diameter. Moderately distended gallbladder with stones and sludge. No gallbladder wall thickening. No sonographic Ibrahim's sign. The main portal vein is antegrade. The right kidney is 11.5 cm in length. No ascites. Procedure Note Damián Woods MD - 07/11/2024 INDICATION: r/o cholecystitis US abdomen limited Comparison: None Findings: The visualized pancreas is normal. Inferior vena cava normal caliber. The liver is normal in size and echotexture. There is no intrahepatic bile duct dilatation. The common duct is 6 mm in diameter. Moderately distended gallbladder with stones and sludge. No gallbladder wall thickening. No sonographic Ibrahim's sign. The main portal vein is antegrade. The right kidney is 11.5 cm in length. No ascites. IMPRESSION: Distended gallbladder with stones and sludge. No additional findings to suggest acute cholecystitis. Follow-up as needed. This document has been electronically signed by: Damián Rios MD on 07/11/2024 03:00:00 us Danya GUILLEN IMG US PROCEDURES Final Result * POC , urine manually resulted (07/10/2024 11:34 PM EDT) HCG, Ur POC Negative Negative Comment:Completed in triage by KN. POC hCG Int QC Pass? Yes Yes Urine Urine specimen obtained by clean catch procedure / Unknown 07/10/2024 11:34 PM EDT us Lucia Lim DO POINT OF CARE TEST ENTER/ EDIT ORDERABLES Final Result * CBC auto differential (07/10/2024 10:15 PM EDT) WBC 7.4 4.8 - 10.8 K/mcL LAB HEMETOLOGY METHOD 07/10/2024 10:40 PM EDT [facility] RBC 4.30 3.80 - 4.80 M/mcL LAB HEMETOLOGY METHOD 07/10/2024 10:40 PM EDT [facility] Hemoglobin 13.2 11.5 - 16.0 g/dL LAB HEMETOLOGY METHOD 07/10/2024 10:40 PM EDT [facility] Hematocrit 40.3 35.0 - 47.0 % LAB HEMETOLOGY METHOD 07/10/2024 10:40 PM EDT [facility] MCV 93.1 79.0 - 98.0 FL LAB HEMETOLOGY METHOD 07/10/2024 10:40 PM EDT [facility] MCH 30.5 27.0 - 32.0 pcg LAB HEMETOLOGY METHOD 07/10/2024 10:40 PM EDT [facility] MCHC 32.8 32.0 - 37.0 g/dL LAB HEMETOLOGY METHOD 07/10/2024 10:40 PM EDT [facility] RDW 13.1 11.0 - 15.0 % LAB HEMETOLOGY METHOD 07/10/2024 10:40 PM EDT [facility] Platelets 321 130 - 400 K/mcL LAB HEMETOLOGY METHOD 07/10/2024 10:40 PM EDT [facility] MPV 9.2 7.0 - 11.0 FL LAB HEMETOLOGY METHOD 07/10/2024 10:40 PM EDT [facility] NRBC 0.0 <1.0 % LAB HEMETOLOGY METHOD 07/10/2024 10:40 PM EDT [facility] NRBC Absolute 0.00 <0.10 K/mcL LAB HEMETOLOGY METHOD 07/10/2024 10:40 PM EDT [facility] Neutrophils Relative 49.9 % LAB HEMETOLOGY METHOD 07/10/2024 10:40 PM EDT [facility] Lymphocytes Relative 38.2 % LAB HEMETOLOGY METHOD 07/10/2024 10:40 PM EDT [facility] Monocytes Relative 10.7 % LAB HEMETOLOGY METHOD 07/10/2024 10:40 PM EDT [facility] Eosinophils Relative 0.7 % LAB HEMETOLOGY METHOD 07/10/2024 10:40 PM EDT [facility] Basophils Relative 0.4 % LAB HEMETOLOGY METHOD 07/10/2024 10:40 PM EDT [facility] Immature Granulocytes Relative 0.1 % LAB HEMETOLOGY METHOD 07/10/2024 10:40 PM EDT [facility] Neutrophils Absolute 3.70 1.50 - 7.00 K/mcL LAB HEMETOLOGY METHOD 07/10/2024 10:40 PM EDT [facility] Lymphocytes Absolute 2.83 1.00 - 5.00 K/mcL LAB HEMETOLOGY METHOD 07/10/2024 10:40 PM EDT [facility] Monocytes Absolute 0.79 0.20 - 1.00 K/mcL LAB HEMETOLOGY METHOD 07/10/2024 10:40 PM EDT [facility] Eosinophils Absolute 0.05 0.00 - 0.50 K/mcL LAB HEMETOLOGY METHOD 07/10/2024 10:40 PM EDT [facility] Basophils Absolute 0.03 0.00 - 0.20 K/mcL LAB HEMETOLOGY METHOD 07/10/2024 10:40 PM EDT [facility] Immature Granulocytes Absolute 0.01 0.00 - 0.03 K/mcL LAB HEMETOLOGY METHOD 07/10/2024 10:40 PM EDT [facility] Blood Venous blood specimen / Unknown Venipuncture / Unknown 07/10/2024 10:15 PM EDT 07/10/2024 10:34 PM EDT us Lucia Lim DO LAB BLOOD ORDERABLES Tonia l Result [facility] [address] [place] [address], [place] [phone] * (ABNORMAL) Lipase (07/10/2024 10:15 PM EDT) Pathologist [facility] Lipase 81(H) 13 - 75 unit/L LAB CHEMISTRY METHOD 07/10/2024 11:05 PM EDT [facility] Blood Venous blood specimen / Unknown Venipuncture / Unknown 07/10/2024 10:15 PM EDT 07/10/2024 10:34 PM EDT Taj Mayur Lim DO LAB BLOOD ORDERABLES Tonia l Result [facility] [address] [place] [address], [place] [phone] * (ABNORMAL) Comprehensive metabolic panel (07/10/2024 10:15 PM EDT) [facility] Sodium 142 133 - 145 mmol/L LAB CHEMISTRY METHOD 07/10/2024 11:20 PM [facility] Potassium 4.4 3.5 - 5.5 mmol/L LAB CHEMISTRY METHOD 07/10/2024 11:20 PM [facility] Chloride 106 96 - 110 mmol/L LAB CHEMISTRY METHOD 07/10/2024 11:20 PM T [facility] CO2 29 21 - 32 mmol/L LAB CHEMISTRY METHOD 07/10/2024 11:20 PM T [facility] Anion Gap 7 3 - 11 LAB CHEMISTRY METHOD 07/10/2024 11:20 PM [facility] Glucose 90 70 - 100 mg/dL LAB CHEMISTRY METHOD 07/10/2024 11:20 PM [facility] BUN 15 5 - 25 mg/dL LAB CHEMISTRY METHOD 07/10/2024 11:20 PM [facility] Creatinine 0.81 0.50 - 1.10 mg/dL LAB CHEMISTRY METHOD 07/10/2024 11:20 PM [facility] eGFR 95 >=60 mL/min/1. 73m2 LAB CHEMISTRY METHOD 07/10/2024 11:20 PM [facility] Comment:Calculation based on the??Chronic Kidney Disease Epidemiology Collaboration (CKD-EPI) equation refit??without adjustment for race. BUN/Creatinine Ratio 18.5 LAB CHEMISTRY METHOD 07/10/2024 11:20 PM [facility] Calcium 9.7 8.5 - 10.5 mg/dL LAB CHEMISTRY METHOD 07/10/2024 11:20 PM [facility] AST (SGOT) 354(H) 10 - 42 unit/L LAB CHEMISTRY METHOD 07/10/2024 11:20 PM [facility] Comment:Results verified by repeat testing ALT (SGPT) 424(H) 10 - 60 unit/L LAB CHEMISTRY METHOD 07/10/2024 11:20 PM [facility] Comment:Results verified by repeat testing Alkaline Phosphatase 137(H) 42 - 121 unit/L LAB CHEMISTRY METHOD 07/10/2024 11:20 PM [facility] Total Protein 8.4(H) 6.0 - 8.0 g/dL LAB CHEMISTRY METHOD 07/10/2024 11:20 PM [facility] Albumin 4.1 3.2 - 5.0 g/dL LAB CHEMISTRY METHOD 07/10/2024 11:20 PM [facility] Total Bilirubin 0.4 0.0 - 1.4 mg/dL LAB CHEMISTRY METHOD 07/10/2024 11:20 PM [facility] Blood Venous blood specimen / Unknown Venipuncture / Unknown 07/10/2024 10:15 PM EDT 07/10/2024 10:34 PM EDT Lucia Lim DO LAB BLOOD ORDERABLES Tonia l Result [facility] [address] [place] [address], from Last 3 Months Insurance MEDICAID - [place] Care Teams Health Care Consultant Relationship Specialty Start Date End Date Theodora, MD Allegra [address] [place] [phone] PCP - General 01/19/21
--- OUTSIDE RECORDS SUMMARY | 2024-08-10 11:47 | XMS_ITS | Encounter Summary ---
Author Organization [email or web address] [facility] Address [address] [place] [address] Care Team Providers Care Wheel Truer Name Role Phone Allegra Yip MD Primary Care Provider [phone]- [phone] EliViola butterfield Praveen [phone] Encounter Details Date Type Department Care Team (Latest Contact Info) Description 08/10/2024 Travel Social History Tobacco Use Types Packs/Day Years Used Date Smoking Tobacco: Never Smokeless Tobacco: Never Depression Answer Date Recorded Patient Health Questionnaire-9 Score 1 08/10/2024 Patient Health Questionnaire-9 Score 1 08/10/2024 Last PHQ-9: Questionnaire Data Not on file 0 08/10/2024 Housing Stability Answer Date Recorded What is your housing situation today? I have rosa acevedo 07/28/[address] you li ve. Do you have problems with any of the following? None of the above 07/28/2024 Food Insecurity Answer Date Recorded Within the past 12 months, y ou worried that your food would run out before you got money to buy more: Never True 07/28/2024 Within the past 12 months,th e food you bought just didn't last and you didn't have enough money to get more: Never True 04/2024 Transportation Answer Date Recorded In the past 12 months, has l ack of transportation kept you from medical appts, meetings, work or from getting things needed for daily living? No 07/28/2024 Utilities Answer Date Recorded In the past 12 months, has t he electric, gas, oil or water company threatened to shut off services in your home? No 07/28/2024 Depression Answer Date Recorded Patient Health Questionnaire-2 Score 0 08/10/2024 Internet Access Answer Date Recorded Internet Access Q1 Yes 07/28/2024 Internet Access Q2 Not on file 07/28/2024 Comments Unknown Sex and Gender Information Value Date Recorded Sex Assigned at Female 02/26/2022 10:14 AM EDT Legal Sex Female 10:14 AM EDT Gender Identity Female 02/26/2022 10:14 AM EDT Sexual Orientation Straight 02/26/2022 10 :14 AM EDT documented as of this encounter Plan of Treatment Not on file documented as of this encounter Visit Diagnoses Not on filedocumented in this encounter Additional Health Concerns Assessment Noted Time PHQ-9 Depression Total Score: 1 08/11/19 25 10:14 AM EDT documented as of this encounter Care Teams Wheel Truer Relationship Specialty Start Date End Date Allegra Yip MD [address] [place] [address] PCP - General Family Medicine 04/29/18 Viola Puente [address] General Surgery 07/23/24 documented as of this encounter
--- OUTSIDE RECORDS SUMMARY | 2024-08-10 11:47 | XMS_ITS | Encounter Summary ---
Author Organization [employer] [facility] Address [address] [place] [address] [address] [place] [address] Care Team Providers Care Tile Applicator Name Role Phone Allegra Yip MD Primary Care Provider [phone] Viola Puente Unavailable [phone] Encounter Details Date Type Department Care Team (Late st Contact Info) Description 11/23/2022 Abstract [facility] [address] [place], [place] [id number] Allegra Yip MD [address] [place] [address] Social History Tobacco Use Types Packs/Day Years Used Date Smoking Tobacco: Never Assessed Comments Unknown Sex and Gender Information Value Date Recorded Sex Assigned at Female 02/26/2022 10:14 AM EDT Legal Sex Female 10:14 AM EDT Gender Identity Female 02/26/2022 10:14 AM EDT Sexual Orientation Straight 02/26/2022 10 :14 AM EDT documented as of this encounter Plan of Treatment Not on file documented as of this encounter Visit Diagnoses Not on filedocumented in this encounter Care Teams Tile Applicator Relationship Specialty Start Date End Date Allegra Yip MD [address] [place] [address] PCP - General Family Medicine 04/29/18 Viola Puente [address] General Surgery 07/23/24 documented as of this encounter
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
--- OUTSIDE RECORDS SUMMARY | 2024-08-10 11:47 | XMS_ITS | Encounter Summary ---
Author Organization [facility] Address [address] [facility] [address] [place] [address] Care Team Providers Care Food Mixer Repairer Name Role Phone Allegra Yip MD Primary Care Provider [phone] Viola Puente [phone] Reason for Visit * Reason Comments Annual Exam Encounter Details Date Type Department Care Team (Latest Contact Info) Description 08/10/2024 9:15 AM EDT Office Visit [facility] [address] [place], [place] [phone] Allegra Yip MD [address] [place], [place] [phone] Hx of cholecystectomy (Primary Dx); Menorrhagia with [...] abnormal cervical Pap smear; Encounter for immunization Social History Tobacco Use Types Packs/Day Years [...] AM EDT documented as of this encounter Last Filed Vital Signs Vital Sign Reading [...] Mass Index 29.51 08/10/2024 9:20 AM EDT documented in this encounter Plan of Treatment Scheduled Orders Name Type Priority Associated Diagnoses Orde r Schedule Hepatic Function Panel Lab Routine Elevated LDL cholesterol level Expected: 08/10/2024, Expires: 08/10/2025 Lipid Panel, Standard Lab Routine Elevated LDL cholesterol level Expected: 08/10/2024, Expires: 08/10/2025 Basic Metabolic Panel Lab Routine Class 1 obesity due to excess calories without serious comorbidity with body mass index (BMI) of 31.0 to 31.9 in adult Expected: 08/10/2024, Expires: 08/10/2025 TSH with Reflex to Free T4 Lab Routine Menorrhagia with irregular cycle Class 1 obesity due to excess calories without serious comorbidity with body mass index (BMI) of 31.0 to 31.9 in adult Weight loss Expected: 08/10/2024 (Approximate), Expires: 08/10/2025 CBC auto differential Lab Routine Menorrhagia with irregular cycle Expected: 08/10/2024, Expires: 08/10/2025 Vitamin D, 25-Hydroxy, Total, Immunoassay Lab Routine Vitamin D deficiency Expected: 08/10/2024 (Approximate), Expires: 08/10/2025 Chlamydia/N. Gonorrhoeae RNA, TMA, Urine Microbiology Routine Routine screening for STI (sexually transmitted infection) Expected: 08/10/2024 (Approximate), Expires: 08/10/2025 HIV-1/2 Antigen and Antibodies, Fourth Generation, with Reflexes Lab Routine Routine screening for STI (sexually transmitted infection) Expected: 08/10/2024 (Approximate), Expires: 08/10/2025 Syphilis Screen Lab Routine Routine screening for STI (sexually transmitted infection) Expected: 08/10/2024 (Approximate), Expires: 08/10/2025 Hepatitis C Antibody with Reflex to HCV, RNA, Quantitative, Real-Time PCR Lab Routine Routine screening for STI (sexually transmitted infection) Expected: 08/10/2024 (Approximate), Expires: 08/10/2025 documented as of this encounter Visit Diagnoses Diagnosis Hx of cholecystectomy- Primary Menorrhagia with irregular cycle Gastroesophageal reflux disease without esophagitis Esophageal reflux Elevated LDL cholesterol level Vitamin D deficiency Class 1 obesity due to excess calories without serious comorbidity with body mass index (BMI) of 31.0 to 31.9 in adult Dietary counseling Dietary surveillance and counseling Exercise counseling Other specified health status Weight loss Loss of weight Routine screening for STI (sexually transmitted infection) Screening examination for venereal disease Hx of abnormal cervical Pap smear Encounter for immunization documented in this encounter Additional Health Concerns Assessment Noted Time PHQ-9 Depression Total Score: 1 08/11/19 25 10:14 AM EDT documented as of this encounter Care Teams Food Mixer Repairer Relationship Specialty Start Date End Date Allegra Yip MD [address] [place] [address] PCP - General Family Medicine 04/29/18 Viola Puente [address] General Surgery 07/23/24 documented as of this encounter
--- OUTSIDE RECORDS SUMMARY | 2024-08-10 11:47 | XMS_ITS | Encounter Summary ---
Author Organization On License Of [facility] Address [address] [place] [address] [address] [place] [address] Care Team Providers Care Lifestyle Coordinator Name Role Phone Allegra Yip MD Primary Care Provider [phone] Viola Puente [facility] [phone] Encounter Details Date Type Department Care Team (Late st Contact Info) Description 06/04/2022 Abstract [facility] [address] [place], [place] [phone] Allegra Yip MD [address], [place] [phone] Social History Tobacco Use Types Packs/Day Years [...] on file documented as of this encounter Procedures Procedure Name Priority Date/Time Associated Diagnosis Comments PAP SMEAR Routine 09/14/2020 12:00 AM EDT documented in this encounter Results * Pap Smear (09/14/2020 12:00 AM EDT) Swab us Historical Provider LAB CYTOLOGY ORDERABLES F inal Result IMAGING documented in this encounter Visit Diagnoses Not on filedocumented in this encounter Care Teams Lifestyle Coordinator Relationship Specialty Start Date End Date Allegra Yip MD [address], [place] [phone] PCP - General Family Medicine 04/29/18 Viola Puente [address] [place] [address] General Surgery 07/23/24 documented as of this encounter
[2024-08-10 12:14] LABS: Alanine Aminotransferase 34 U/L (0-31); Albumin Level 4.5 g/dL (3.5-5.0); Anion Gap 11 (12-20); Aspartate Amino Transferase 33 U/L (5-31); Bilirubin Direct 0.1 mg/dL (0.0-0.5); Bilirubin Total 0.5 mg/dL (0.0-1.0); Blood Urea Nitrogen 14 mg/dL (9-16); Calcium 9.6 mg/dL (8.4-10.2); Carbon Dioxide 24 mmol/L (22-29); Chloride 109 mmol/L (96-108); Cholesterol 213 mg/dL (<200); Estimated Glomerular Filt Rate > 60; Glucose Random 88 mg/dL (60-115); HDL Cholesterol 44 mg/dL (>40); LDL Cholesterol Calculated 153 mg/dL (<100); Potassium 3.9 mmol/L (3.3-5.1); Sodium 140 mmol/L (135-145); Total Protein 8.4 g/dL (6.5-8.0); Triglycerides 84 mg/dL (<150)
[2024-08-10 12:31] LABS: Ferritin 105 ng/mL (10-122); TSH reflex Free T4 0.28 uIU/mL (0.32-4.0); Vitamin D 25-OH Total 44.3 ng/mL (>30)
[2024-08-10 12:39] LABS: Alkaline Phosphatase 95 U/L (39-117)
[2024-08-10 12:59] LABS: Syphilis Screen Nonreactive (Nonreactive)
[2024-08-10 13:10] LABS: HIV AB/AG Nonreactive (Nonreactive); HIV Num 1 0.06 S/CO (0.00-0.99); ~HepC Num1 0.71 S/CO (0.00-0.79); ~Hepatitis C Antibody Nonreactive (Nonreactive)
[2024-08-10 13:13] LABS: Free T4 (Free Thyroxine) 0.84 ng/dL (0.71-1.85)
[2024-08-10 13:56] LABS: CT PCR NOT DETECTED (Not Detect.); NG PCR NOT DETECTED (Not Detect.)
== END 2024-08-10 10:21 | disposition home or self-care (01) ==
LOC: HO.HHCL 10:20
PROVIDERS: Visit Provider Family Medicine
DX: E78.00 Pure hypercholesterolemia, unspecified (principal); E66.811 Obesity, class 1; E66.09 Other obesity due to excess calories; Z68.31 Body mass index [BMI] 31.0-31.9, adult; N92.1 Excessive and frequent menstruation with irregular cycle; E55.9 Vitamin D deficiency, unspecified; Z11.3 Encounter for screening for infections with a predominantly sexual mode of transmission; R63.4 Abnormal weight loss
CPT/HCPCS: 80048; 80061; 80076; 82306; 82728; 84439; 84443; 85025; 86780; 86803; 87389; 87491; 87591

== ENCOUNTER 2024-08-31 08:38 | Outpatient (REF) | payer MEDICAID, SELFPAY ==
--- OUTSIDE RECORDS SUMMARY | 2024-08-31 09:00 | XMS_ITS | Clinical Summary ---
Author Organization [employer] Address [address] [facility] [address] [place] [address] Care Team Providers Care School Adjustment Counselor Name Role Phone Allegra Yip MD Primary Care Provider [phone] Viola Puente [phone] Allergies No known active allergies Medications [...] Active Problems Problem Noted Date Diagnosed Date Weight loss 08/10/2024 Overview (08/10/2024): -Has lost 14 lbs since recent cholecystectomy due to dietary changes. -ordered labs 08/10/24 Assessment & Plan (08/10/2024 1:59 PM EDT): -Has lost 14 lbs since recent cholecystectomy due to dietary changes. -ordered labs 08/10/24 Hx of cholecystectomy 2024 Overview (2024): -with Dr. Puente at [facility] 07/11/24 Assessment & Plan (08/10/2024 2:01 PM EDT): -with Dr. Puente at [facility] 07/11/24 Encounter for immunization 12/20/2023 BMI 29.0-29.9,adult 12/20/2023 Overview (08/10/2024): -Continue lifestyle modifications -Has lost 14 lbs since recent cholecystectomy due to dietary changes. -ordered labs 08/10/24 Assessment & Plan (08/10/2024 1:58 PM EDT): -Continue lifestyle modifications -Has lost 14 lbs since recent cholecystectomy due to dietary changes. -ordered labs 08/10/24 Exercise counseling 12/20/2023 Dietary counseling 12/20/2023 Perimenopausal [...] referral. Elevated LDL cholesterol level 12/20/2023 Overview (08/10/2024): Lab Results Component Value Date CHOL 185 07/15/2023 TRIG 73 07/15/2023 HDL 46 07/15/2023 LDLCHOLCAL 125 (H) 07/15/2023 -continue lifestyle modification -ordered repeat FLP and HF 08/10/24 Assessment & Plan (08/10/2024 2:01 PM EDT): Lab Results Component Value Date CHOL 185 07/15/2023 TRIG 73 07/15/2023 HDL 46 07/15/2023 LDLCHOLCAL 125 (H) 07/15/2023 -continue lifestyle modification -ordered repeat FLP and HF 08/10/24 Assessment & Plan (12/20/2023 10:01 AM EDT): -ordered lipid panel 12/20/23 Menorrhagia with irregular cycle 12/20/2023 Overview (08/10/2024): Not currently active. -likely perimenopausal symptoms -advised to start vitamin D ad calcium supplementation -discussed if symptoms worsen or change to evaluate for estrogen treatment. Assessment & Plan (08/10/2024 2:00 PM EDT): Not currently active. -likely perimenopausal symptoms -advised to start vitamin D ad calcium supplementation -discussed if symptoms worsen or change to evaluate for estrogen treatment. Assessment & Plan (12/20/2023 10:04 AM EDT): -likely perimenopausal symptoms -advised to start vitamin D ad calcium supplementation -discussed if symptoms worsen or change to evaluate for estrogen treatment Vitamin D deficiency 12/20/2023 Overview (08/10/2024): Lab Results Component Value Date [id number] 26.6 (L) 07/15/2023 -Start Vitamin D-3 25 MCG, daily 12/20/23 -ordered repeat Vit D level 08/10/24 Assessment & Plan (08/10/2024 2:00 PM EDT): Lab Results Component Value Date [id number] 26.6 (L) 07/15/2023 -Start Vitamin D-3 25 MCG, daily 12/20/23 -ordered repeat Vit D level 08/10/24 Assessment & Plan (12/20/2023 10:01 AM EDT): - labs on 07/15/23 showed slightly low Vitamin D levels -Start Vitamin D-3 25 MCG, daily 12/20/23 Back pain 07/03/2023 Overview (07/03/2023): - Was previously referred to PT at [facility] with minimal improvement. Was also referred to [facility] where she declined receiving an injection. Pain medication were provided but were discontinued to side effects. - Discussed stretching and take Ibuprofen prn Assessment & Plan (07/03/2023 2:55 PM EST): - Was previously referred to PT at [facility] with minimal improvement. Was also referred to [facility] where she declined receiving an injection. Pain medication were provided but were discontinued to side effects. - Discussed stretching and take Ibuprofen prn 07/03/23 Gastroesophageal reflux disease without esophagi tis 07/03/2023 Overview (08/10/2024): Trial of Omeprazole 20 mg once daily 07/03/23 -resolved 07/2024 Assessment & Plan (08/10/2024 2:00 PM EDT): Trial of Omeprazole 20 mg once daily 07/03/23 -resolved 07/2024 Assessment & Plan (12/20/2023 9:54 AM EDT): [...] 07/03/2023 Other specified health status 12/07/2022 Overview (08/10/2024): -next physical exam due after 08/10/25 -eye care facilitated by [facility] -dental home is [facility] -health care proxy, given ad filed 12/20/23 Assessment & Plan (08/10/2024 2:01 PM EDT): -next physical exam due after 08/10/25 -eye care facilitated by [facility] -dental home is [facility] -health care proxy, given ad filed 12/20/23 Assessment & Plan (12/20/2023 9:45 AM EDT): -next physical exam due after 07/02/2024 -eye care facilitated by [facility] -dental home is [facility] -health care proxy, given ad filed 12/20/23 Assessment & Plan (07/03/2023 2:53 PM EST): -next physical exam due after 07/02/2024 -eye care facilitated by [facility] -dental home is [facility] Hx of abnormal cervical Pap smear 12/07/2022 Overview (08/23/2023): - PAP done 07/03/2023 NILM HPV negative - PAP on 09/14/2020 NILM HPV negative - PAP results from 05/14/19, NIL HPV+ Assessment & Plan (08/10/2024 2:01 PM EDT): - PAP done 07/03/2023 NILM HPV [...] Concern about STD in female without diagnosis 07/03/19 24 12/20/2023 Muscle strain 07/03/2023 12/20/2023 Near syncope 07/03/2023 12/20/2023 UTI (urinary tract infection) 07/03/2023 12/20/2023 Physical exam, annual 07/03/20232024 Encounters Date Type Department Care Team Description 08/11/2024 Orders Only [facility] [address] [place] [phone] Allegra Yip MD Low TSH level (Primary Dx); Transaminitis; Dyslipidemia 08/10/2024 9:15 AM EDT Office Visit [facility] [address] [place] [phone] Allegra Yip MD Hx of cholecystectomy (Primary Dx); Gastroesophageal reflux disease without esophagitis; Elevated LDL cholesterol level; Vitamin D deficiency; Menorrhagia with irregular cycle; Hx of abnormal cervical Pap smear; Weight loss; BMI 29.0-29.9,adult; Routine screening for STI (sexually transmitted infection); Encounter for immunization; Other specified health status; Dietary counseling; Exercise counseling; Overweight 08/10/2024 Orders Only [facility] [address] [place] [address] Allegra Yip MD 08/10/2024 Travel 07/28/2024 Patient Outreach [facility] [address] [place] [address] Allegra iYp MD Pre-visit Planning (SDOH Screening negative and Tobacco screening negative) 07/10/2024 Population Health Risk Score [facility] () Department [address] [place] [phone] Provider, Population Health Generic from Last [...] Additional history exists Pap Smear 07/02/2028 07/03/2023, 09/2023, 09/14/2020, Additional history exists Lipid Panel 08/10/2029 08/10/2024, 06/27, 03/09/2022, Additional history exists DTaP/Tdap/Td Vaccines (9 - Td or Tdap) 12/19/2033 12/20/2023, 07/29/2013, 04/08/2012, Additional history exists Zoster Vaccines (1 of 2) 07/24/2035 RSV Patients and Patients Aged 60 years or older (1 - 1-dose 75+ series) 2060 IPV Vaccines Completed 10/27/1990, 04/1989, 12/28/1986, Additional history exists Hepatitis B Vaccines Completed 06/30/1996, 10/28/1995, 09/28/1995 HIV Screening Completed 08/10/2024, 02/27, 09/16/2020, Additional history exists Hepatitis C Screening Completed 08/10/2024, 022 Influenza Vaccine Completed 08/10/2024, , 05/14/2019, Additional [...] Procedure Name Priority Date/Time Associated Diagnosis Comments T4, FREE Routine 08/10/2024 10:22 AM EDT HEPATITIS C AB W/REFL TO HCV RNA, QN, PCR Routine 08/10/2024 10:22 AM EDT Routine screening for STI (sexually transmitted infection) SYPHILIS SCREEN Routine 08/10/2024 10:22 AM EDT Routine screening for STI (sexually transmitted infection) HIV 1/2 ANTIGEN/ANTIBODY, FOURTH GENERATION W/RFL Routine 08/10/2024 10:22 AM EDT Routine screening for STI (sexually transmitted infection) TSH W/REFLEX TO FT4 Routine 08/10/2024 1 0:22 AM EDT Menorrhagia with irregular cycle BMI 29.0-29.9,adult Weight loss BASIC METABOLIC PANEL Routine 08/10/2024 10:22 AM EDT BMI 29.0-29.9,adult HEPATIC FUNCTION PANEL Routine 08/10/2024 10:22 AM EDT Elevated LDL cholesterol level LIPID PANEL, STANDARD Routine 08/10/2024 10:22 AM EDT Elevated LDL cholesterol level VITAMIN D,25-OH,TOTAL,IA Routine 08/10/2024 10:22 AM EDT Vitamin D deficiency FERRITIN Routine 08/10/2024 10:22 AM EDT Menorrhagia with irregular cycle CBC WITH AUTO DIFFERENTIAL Routine 08/10/2024 10:22 AM EDT Menorrhagia with irregular cycle CHLAMYDIA/N. GONORRHOEAE RNA, TMA, UROGENITAL Routine 08/10/2024 10:22 AM EDT Routine screening for STI (sexually transmitted infection) HPV MRNA E6/E7 REFLEX TO HPV 16, 18/45 Routine 07/03/2023 12:15 PM EST PAP SMEAR Routine 07/03/2023 12:15 PM EST from Last 3 Months or Most Recently Relevant to Health Maintenance Results * Syphilis Screen (08/10/2024 10:22 AM EDT) Syphilis Screen Nonreactive Nonreactive [facility] Blood Venous blood specimen / Unknown 08/10/2024 10:22 AM EDT 08/10/2024 11:15 AM EDT us Allegra Yip MD LAB BLOOD ORDERABLES Final Result [facility] [address] [place] [phone] * Vitamin D, 25-Hydroxy, Total, Immunoassay (08/10/2024 10:22 AM EDT) Vitamin D 25-OH Total 44.3 >30 ng/mL [facility] Comment: Health Based Reference Values*< 20 ??ng/mL ??Zyhkyuivm99-21 ng/mL ??Insufficient> 30 ??ng/mL ??Sufficient*Vini ROWAN. N Engl J Med. 2007;357:266-280There is no well-established upper level of normal vitamin Dlevels. Some laboratories use 50 ng/mL as an upper limit ofnormal. However, toxicity is patient-dependent and may occurat any level. Careful correlation with the patient'spresentation is necessary and, if there is concern forvitamin D toxicity, treatment should be consideredirrespective of the serum level.Care must be taken in interpreting Vitamin D results fromdifferent laboratories and methodologies. ??Published datademonstrated that results from patients undergoinghemodialysis may show a negative bias when tested withvarious automated 25-OH vitamin D assays when compared toLC- MS/MS.When testing samples from patients whose predominant form ofVitamin D is Vitamin D2, such as patients receiving VitaminD2 supplementation, results that are subtherapeutic shouldbe confirmed with another method such as LC-MS/MS. Blood Venous blood specimen / Unknown 08/10/2024 10:22 AM EDT 08/10/2024 11:15 AM EDT Allegra Yip MD LAB BLOOD ORDERABLES Final Result Performing Organization Address [facility]/ZIP Co de Phone Number [facility] [address] [place] [phone] * (ABNORMAL) TSH with Reflex to Free T4 (08/10/2024 10:22 AM EDT) Pathologist [facility] TSH reflex Free T4 0.28(L) 0.32 - 4.0 uIU/mL [facility] Blood 08/10/2024 10:2 2 AM EDT 08/10/2024 11:15 AM EDT Allegra Yip MD LAB BLOOD ORDERABLES Final Result Performing Organization Address [facility]/ZIP Co de Phone Number [facility] [address] [place] [phone] * CBC auto differential (08/10/2024 10:22 AM EDT) White Blood Count 6.3 4.8 - 10.8 X10*3/uL [facility] Red Blood Count 4.67 4.20 - 5.50 X10*6/uL [facility] Hemoglobin 14.2 12.0 - 16.0 g/dl [facility] Hematocrit 43.6 37.0 - 47.0 % [facility] Mean Corpuscular Volume 93.4 80.0 - 98.0 fL [facility] Mean Corpuscular Hemoglobin 30.4 27.0 - 33.0 pg [facility] Mean Corpuscular HGB Conc 32.6 31.0 - 35.0 g/dl [facility] Red Cell Distribution Width 12.8 11.0 - 16.0 % [facility] Platelet Count 283 160 - 400 X10*3/uL [facility] Mean Platelet Volume 9.9 9.4 - 12.3 fL [facility] Neutrophils Percent Auto 58.5 45 - 73 % [facility] Imm Gran Pct Auto 0.2 0.0 - 0.4 % [facility] Lymphocytes Percent Auto 33.2 20 - 40 % [facility] Monocytes Percent Auto 6.8 2 - 11 % [facility] Eosinophils Percent Auto 0.8 0 - 4 % [facility] Basophils Percent Auto 0.5 0 - 2 % [facility] NRBC Pct Auto 0.0 0.0 - 0.2 /100WBC [facility] Neutrophils Absolute Auto 3.7 2.0 - 8.3 x10*3/uL [facility] Imm Gran Abs Auto 0.01 0.00 - 0.03 X10*3/uL [facility] Lymphocytes Absolute Auto 2.1 1.2 - 4.9 X10*3/uL [facility] Monocytes Absolute Auto 0.4 0.1 - 1.2 X10*3/uL [facility] Eosinophils Absolute Auto 0.1 0.0 - 0.4 X10*3/uL [facility] Basophils Absolute Auto 0.0 0.0 - 0.2 X10*3/uL [facility] NRBC Abs Auto 0.000 0.0 - 0.012 X10*3/uL [facility] Blood Venous blood specimen / Unknown 08/10/2024 10:22 AM EDT 08/10/2024 11:15 AM EDT Allegra Yip MD LAB BLOOD ORDERABLES Final Result [facility] [address] [place] [phone] * Hepatitis C Antibody with Reflex to HCV, RNA, Quantitative, Real-Time PCR (08/10/2024 10:22 AM EDT) Pathologist [facility] Hepatitis C Antibody Nonreactive Nonreactive [facility] Comment:Antibodies to HCV no t detected; does not exclude early acuteHCV infection. Blood Venous blood specimen / Unknown 08/10/2024 10:22 AM EDT 08/10/2024 11:15 AM EDT Allegra Yip MD LAB BLOOD ORDERABLES Final Result [facility] [address] [place] [phone] * Chlamydia/N. Gonorrhoeae RNA, TMA, Urine (08/10/2024 10:22 AM EDT) [facility] CT PCR NOT DETECTED Not Detect. [facility] Comment:A not detected test result does not exclude the possibilityof infection because test results can be affected byimproper specimen collection, concurrent antibiotic therapy,or the number of organisms in the specimen which may bebelow the sensitivity of the test. As with many diagnostictests, results from the Xpert CT/NG assay should beinterpreted in conjunction with other laboratory andclinical data available to the clinician.Xpert CT/NG performance has not been evaluated in patientsless than 14 years of age. The assay should not be used forthe evaluationof suspected sexual abuse or for other medico-legalindications. Additional testing is recommended in anycircumstance when false positive or false negative resultscould lead to adverse medical, social or psychologicalconsequences. NG PCR NOT DETECTED Not Detect. [facility] Comment:A not detected test result does not exclude the possibilityof infection because test results can be affected byimproper specimen collection, concurrent antibiotic therapy,or the number of organisms in the specimen which may bebelow the sensitivity of the test. As with many diagnostictests, results from the Xpert CT/NG assay should beinterpreted in conjunction with other laboratory andclinical data available to the clinician.Xpert CT/NG performance has not been evaluated in patientsless than 14 years of age. The assay should not be used forthe evaluationof suspected sexual abuse or for other medico-legalindications. Additional testing is recommended in anycircumstance when false positive or false negative resultscould lead to adverse medical, social or psychologicalconsequences. Urine (Urine, Random) 08/10/2024 10:22 AM EDT 08/10/2024 11:34 AM EDT Narrative [facility] - 08/10/2024 1:57 PM EDT Urine Allegra Yip MD LAB MICROBIOLOGY - GENERAL ORDERABLES Final Result [facility] [address] [place] [phone] * HIV-1/2 Antigen and Antibodies, Fourth Generation, with Reflexes (08/10/2024 10:22 AM EDT) HIV AB/AG Nonreactive Nonreactive [facility] Comment:HIV-1 p24 Ag and/or HIV-1/HIV-2 Ab not detected.A test result that is nonreactive does not exclude thepossibility of exposure to or infection with HIV-1 and/orHIV-2. Nonreactive results in this assay for individualswith prior exposure to HIV-1 and/or HIV-2 may be due toantigen and antibody levels that are below the limit ofdetection of this assay.The Hactus HIV Ag/Ab Combo assay result andsupplemental assay results should be interpreted inconjunction with the patient's clinical presentation,history and other laboratory results. If the results areinconsistent with clinical evidence, additional testing issuggested to confirm the result. Blood Venous blood specimen / Unknown 08/10/2024 10:22 AM EDT 08/10/2024 11:15 AM EDT Allegra Yip MD LAB BLOOD ORDERABLES Final Result Performing Organization Address [facility]/ZIP Co de Phone Number [facility] [address] [place] [phone] * T4, Free (08/10/2024 10:22 AM EDT) Pathologist [facility] Free T4 (Free Thyroxine) 0.84 0.71 - 1.85 ng/dL [facility] 08/10/2024 10:2 2 AM EDT 08/10/2024 11:15 AM EDT Allegra Yip MD LAB BLOOD ORDERABLES Final Result Performing Organization Address [facility] Co de Phone Number [facility] [address] [place] [phone] * Ferritin (08/10/2024 10:22 AM EDT) [facility] Ferritin 105 10 - 122 ng/mL [facility] Blood Venous blood specimen / Unknown 08/10/2024 10:22 AM EDT 08/10/2024 11:15 AM EDT Allegra Yip MD LAB BLOOD ORDERABLES Final Result Performing Organization Address [facility] Co de Phone Number [facility] [address] [place] [phone] * (ABNORMAL) Hepatic Function Panel (08/10/2024 10:22 AM EDT) [facility] Bilirubin, Total 0.5 0.0 - 1.0 mg/dL [facility] Bilirubin, Direct 0.1 0.0 - 0.5 mg/dL [facility] Aspartate Amino Transferase 33(H) 5 - 31 U/L [facility] Alanine Aminotransferase 34(H) 0 - 31 U/L [facility] Total Protein 8.4(H) 6.5 - 8.0 g/dL [facility] Albumin Level 4.5 3.5 - 5.0 g/dL [facility] Alkaline Phosphatase 95 39 - 117 U/L [facility] Blood Venous blood specimen / Unknown 08/10/2024 10:22 AM EDT 08/10/2024 11:15 AM EDT Allegra Yip MD LAB BLOOD ORDERABLES Final Result Performing Organization Address City/[facility]/ZIP Co de Phone Number [facility] [address] [place] [phone] * (ABNORMAL) Lipid Panel, Standard (08/10/2024 10:22 AM EDT) Triglycerides 84 <150 mg/dL [facility] Comment:Desirable Triglyceri de: less than 150 mg/dLBorderline High Triglyceride 150-199 mg/dLHigh Triglyceride: 200-499 mg/dLVery High Triglyceride: greater than or equal to 5OO mg/dL Cholesterol 213(H) <200 mg/dL [facility] Comment:Desirable Cholestero l: less than 200 mg/dLBorderline High Cholesterol: 200-239 mg/dLHigh Cholesterol: greater than 239 mg/dL LDL Cholesterol Calculated 153(H) <100 mg/dL [facility] Comment:Desirable LDL: less than 100 mg/dLNear Optimal/Above Optimal LDL: 110- 129 mg/dLBorderline High LDL: 130-159 mg/dLHigh LDL: 160-189 mg/dLVery High LDL: greater than or equal to 190 mg/dL HDL Cholesterol 44 >40 mg/dL [facility] Comment:Desirable HDL: great er than 40 mg/dL Note: This HDL assay may give artificially low results in patients with liver disease. Blood Venous blood specimen / Unknown 08/10/2024 10:22 AM EDT 08/10/2024 11:15 AM EDT Allegra Yip MD LAB BLOOD ORDERABLES Final Result Performing Organization Address City/[facility]/ZIP Co de Phone Number [facility] [address] [place] [phone] * (ABNORMAL) Basic Metabolic Panel (08/10/2024 10:22 AM EDT) Sodium 140 135 - 145 mmol/L [facility] Potassium 3.9 3.3 - 5.1 mmol/L [facility] Chloride 109(H) 96 - 108 mmol/L [facility] Carbon Dioxide 24 22 - 29 mmol/L [facility] Anion Gap 11(L) 12 - 20 [facility] Urea Nitrogen (BUN) 14 9 - 16 mg/dL [facility] Creatinine, Serum 0.75 0.5 - 1.4 mg/dL [facility] Estimated Glomerular Filt Rate >60 [facility] Comment:Chronic Kidney Disea se: Estimated GFR < 60 mL/min/1.63t5Hdmisb Kidney Disease: Estimated GFR < 15 mL/min/1.73m2 Glucose 88 60 - 115 mg/dL [facility] Calcium 9.6 8.4 - 10.2 mg/dL [facility] Blood Venous blood specimen / Unknown 08/10/2024 10:22 AM EDT 08/10/2024 11:15 AM EDT Allegra Yip MD LAB BLOOD ORDERABLES Final Result [facility] [address] [place] [phone] * HPV mRNA E6/E7 w/Reflex to HPV Genotypes 16, 18/45 (07/03/2023 12:15 PM EST) HPV nRNA E6/E7 Not Detected Not Detected [facility] Comment:Methodology: Transcr iption-Mediated AmplificationThis assay detects E6/E7 viral messenger RNA (mRNA) from 14high-risk HPV types (16,18,31,33,35,39,45,51,52,56,58,59,66,68).Cervical sources are required for HPV testing.If a vaginal source from a patient who has had atotal hysterectomy with removal of cervix wassubmitted, please contact the testing laboratoryfor alternative testing options.For additional information, please refer tohttp://education.[employer]/faq/AEP942q3(This link if provided for information/educational purposes only.)THIS TEST WAS PERFORMED AT:[facility] [place] [phone] BARRY MD HPV mRNA E6/E7 TNP [facility] HPV 16 RNA TNP [facility] HPV 18/45 RNA TNP [facility] 07/03/2023 12:1 5 PM EST 07/04/2023 8:30 AM EST us Allegra Yip MD LAB CYTOLOGY ORDERABLES Fi nal Result [facility] [address] [place] [phone] * Pap Smear (07/03/2023 12:15 PM EST) 07/03/2023 12:1 5 PM EST 07/04/2023 8:30 AM EST Narrative [facility] - 07/18/2023 6:49 AM EDT ----- ------- Name: Louise Lozano ?Age/Sex: 37/F ? : 1985 Unit#: [id number] ?? Attend Dr: Allegra Yip MD ?Re07/03/23 ?Status: DEP REF ? Location: [facility] ? Disch: ? ----- ------- SPEC : [id number] ? RECD: 07/04/23 ? STATUS: ??SOUT ? REQ NUM: [id number] ? LUCRETIA: 07/03/23 ? SUBM DR: Allegra Yip MD ? ENTERED: ??07/04/23 ?SP TYPE: Pap Smr ?OTHR DR: ? ORDERED: ??Pap Smear ? Interpretation ?? Satisfactory for evaluation. ?? Moderate inflammation. ?? Negative for intraepithelial lesion or malignancy. ?HPV mRNA E6/E7: ?NOT DETECTED ? This assay detects E6/E7 viral messenger RNA (mRNA) from 14 high-risk HPV types (16, 18, ?? 31, 33, 35, 39, 45, 51, 52, 56, 58, 59, 66, 68) ?? HPV testing performed by [facility], [place], [place]. ??See reference laboratory ?? portion of the EMR for entire report. ?Clinical Information LMP: Unknown date Previous PAP test: Unknown date/findings ? Material Received ?? ThinPrep-Vaginal/Cervical ----- ------- Signed (signature on file) CYNTHIA [employer] (ASCP) 07/18/23 0649 ? ----- ------- ? END OF REPORT ? 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
--- OUTSIDE RECORDS SUMMARY | 2024-08-31 09:00 | XMS_ITS | Clinical Summary ---
Author Organization 175 [facility] Address [address] [place] [address] Phone Care Team Providers Care Bicycle Repair Technician Name Role Phone Allegra Yip MD Primary Care Provider [phone] Allergies No known active allergies Medications oxyCODONE (ROXICODONE) 5 mg immediate release tablet Take 1 tablet (5 mg total) by mouth every 4 (four) hours if needed for severe pain. Max Daily Amount: 30 mg 12 tablet Active Additional Information Patient not taking.Reported on 07/21/2024 Active Problems Problem Noted Date Diagnosed Date Acute gallstone pancreatitis 07/11/2024 Resolved Problems Problem Noted Date Diagnosed Date Resolved Date Calculus of gallbladder with out cholecystitis without obstruction 07/10/2024 07/11/2024 Encounters Date Type Department Care Team Description 07/21/2024 3:15 PM EDT Office Visit General Surgery - [place] [address] [phone] Viola Puente MD Chronic cholecystitis with calculus (Primary Dx) 07/11/2024 1:05 PM EDT - 07/11/2024 3:15 PM EDT Surgery [facility] OR [address] [place] [phone] Bartolo Cabrera DO CHOLECYSTECTOMY LAPAROSCOPIC 07/11/2024 10:00 AM EDT Anesthesia Event [facility] OR [address] [place] [phone] Meir Argueta DO 07/10/2024 11:27 PM EDT - 07/11/2024 5:10 PM EDT Emergency [facility] [address] [place] [phone] Seth Dewey MD Acute gallstone pancreatitis (Primary [...] on file Sexual Orientation Not on file Obstetrics History Last Filed Vital Signs Vital [...] cholecystitis and cholelithiasis. 07/14/2024 11:29 AM EDT [facility] Gross Description A. Gallbladder, : [...] and the adventitial margin is inked green. Charcoal Kiln Burner sections are submitted in one cassette including gallbladder (fundus, body and neck), duct margin (inked red), and cross section adjacent to duct margin (inked blue), five pieces. JUDY 07/14/2024 11:29 AM EDT [facility] Disclaimer Unless otherwise specified, all tissue is 10% NB formalin fixed and paraffin embedded. 07/14/2024 11:29 AM EDT [facility] Tissue Gallbladder structure / Unknown 07/11/2024 10:49 AM EDT 07/13/2024 5:13 AM EDT us Bartolo D White DO LAB PATHOLOGY ORDERABLES Final Result [facility] [address] [place] [address], * TH AN ENDOTRACHEAL(NO CHARGE) (07/11/2024 10:33 AM EDT) Adam Mack CRNA - 07/11/2024 10:33 AM EDT Adam [...] urine manually resulted (07/10/2024 11:34 PM EDT) Pathologist [facility] HCG, Ur POC Negative Negative Comment:Completed in triage by KN. POC hCG Int QC Pass? Yes Yes Urine Urine specimen obtained by clean catch procedure / Unknown 07/10/2024 11:34 PM EDT us Lucia Bertrandny Raphael DO POINT OF CARE TEST ENTER/ EDIT ORDERABLES Final Result * CBC auto differential (07/10/2024 10:15 PM EDT) Pathologist [facility] WBC 7.4 4.8 - 10.8 K/mcL LAB HEMETOLOGY METHOD 07/10/2024 10:40 PM EDT [facility] RBC 4.30 3.80 - 4.80 M/mcL LAB HEMETOLOGY METHOD 07/10/2024 10:40 PM EDT [facility] Hemoglobin 13.2 11.5 - 16.0 g/dL LAB HEMETOLOGY METHOD 07/10/2024 10:40 PM EDT [facility] Hematocrit 40.3 35.0 - 47.0 % LAB HEMETOLOGY METHOD 07/10/2024 10:40 PM EDT [facility] MCV 93.1 79.0 - 98.0 FL LAB HEMETOLOGY METHOD 07/10/2024 10:40 PM EDT [facility] MCH 30.5 27.0 - 32.0 pcg LAB HEMETOLOGY METHOD 07/10/2024 10:40 PM EDT [facility] MCHC 32.8 32.0 - 37.0 g/dL LAB HEMETOLOGY METHOD 07/10/2024 10:40 PM EDT [facility] RDW 13.1 11.0 - 15.0 % LAB HEMETOLOGY METHOD 07/10/2024 10:40 PM EDT [facility] Platelets 321 130 - 400 K/mcL LAB HEMETOLOGY METHOD 07/10/2024 10:40 PM EDT [facility] MPV 9.2 7.0 - 11.0 FL LAB HEMETOLOGY METHOD 07/10/2024 10:40 PM EDT [facility] NRBC 0.0 <1.0 % LAB HEMETOLOGY METHOD 07/10/2024 10:40 PM EDT [facility] NRBC Absolute 0.00 <0.10 K/mcL LAB HEMETOLOGY METHOD 07/10/2024 10:40 PM EDT [facility] Neutrophils Relative 49.9 % LAB HEMETOLOGY METHOD 07/10/2024 10:40 PM EDT [facility] Lymphocytes Relative 38.2 % LAB HEMETOLOGY METHOD 07/10/2024 10:40 PM EDT [facility] Monocytes Relative 10.7 % LAB HEMETOLOGY METHOD 07/10/2024 10:40 PM EDT [facility] Eosinophils Relative 0.7 % LAB HEMETOLOGY METHOD 07/10/2024 10:40 PM EDT [facility] Basophils Relative 0.4 % LAB HEMETOLOGY METHOD 07/10/2024 10:40 PM EDT [facility] Immature Granulocytes Relative 0.1 % LAB HEMETOLOGY METHOD 07/10/2024 10:40 PM EDT [facility] Neutrophils Absolute 3.70 1.50 - 7.00 K/mcL LAB HEMETOLOGY METHOD 07/10/2024 10:40 PM EDT [facility] Lymphocytes Absolute 2.83 1.00 - 5.00 K/mcL LAB HEMETOLOGY METHOD 07/10/2024 10:40 PM EDT [facility] Monocytes Absolute 0.79 0.20 - 1.00 K/mcL LAB HEMETOLOGY METHOD 07/10/2024 10:40 PM EDT [facility] Eosinophils Absolute 0.05 0.00 - 0.50 K/mcL LAB HEMETOLOGY METHOD 07/10/2024 10:40 PM EDT [facility] Basophils Absolute 0.03 0.00 - 0.20 K/mcL LAB HEMETOLOGY METHOD 07/10/2024 10:40 PM EDT [facility] Immature Granulocytes Absolute 0.01 0.00 - 0.03 K/mcL LAB HEMETOLOGY METHOD 07/10/2024 10:40 PM EDT [facility] Blood Venous blood specimen / Unknown Venipuncture / Unknown 07/10/2024 10:15 PM EDT 07/10/2024 10:34 PM EDT us Lucia Lim DO LAB BLOOD ORDERABLES Tonia l Result [facility] [address] [place] [address], * (ABNORMAL) Lipase (07/10/2024 10:15 PM EDT) Lipase 81(H) 13 - 75 unit/L LAB CHEMISTRY METHOD 07/10/2024 11:05 PM EDT [facility] Blood Venous blood specimen / Unknown Venipuncture / Unknown 07/10/2024 10:15 PM EDT 07/10/2024 10:34 PM EDT us Lucia Lim DO LAB BLOOD ORDERABLES Tonia l Result [facility] [address] [place] [address], * (ABNORMAL) Comprehensive metabolic panel (07/10/2024 10:15 PM EDT) Sodium 142 133 - 145 mmol/L LAB CHEMISTRY METHOD 07/10/2024 11:20 PM [facility] Potassium 4.4 3.5 - 5.5 mmol/L LAB CHEMISTRY METHOD 07/10/2024 11:20 PM [facility] Chloride 106 96 - 110 mmol/L LAB CHEMISTRY METHOD 07/10/2024 11:20 PM [facility] CO2 29 21 - 32 mmol/L LAB CHEMISTRY METHOD 07/10/2024 11:20 PM [facility] Anion Gap 7 3 - 11 LAB CHEMISTRY METHOD 07/10/2024 11:20 PM [facility] Glucose 90 70 - 100 mg/dL LAB CHEMISTRY METHOD 07/10/2024 11:20 PM [facility] BUN 15 5 - 25 mg/dL LAB CHEMISTRY METHOD 07/10/2024 11:20 PM [facility] Creatinine 0.81 0.50 - 1.10 mg/dL LAB CHEMISTRY METHOD 07/10/2024 11:20 PM [facility] eGFR 95 >=60 mL/min/1. 73m2 LAB CHEMISTRY METHOD 07/10/2024 11:20 PM [facility] Comment:Calculation based on the??Chronic Kidney Disease Epidemiology Collaboration (CKD-EPI) equation refit??without adjustment for race. BUN/Creatinine Ratio 18.5 LAB CHEMISTRY METHOD 07/10/2024 11:20 PM EDT [facility] Calcium 9.7 8.5 - 10.5 mg/dL LAB CHEMISTRY METHOD 07/10/2024 11:20 PM [facility] AST (SGOT) 354(H) 10 - 42 unit/L LAB CHEMISTRY METHOD 07/10/2024 11:20 PM T [facility] Comment:Results verified by repeat testing ALT (SGPT) 424(H) 10 - 60 unit/L LAB CHEMISTRY METHOD 07/10/2024 11:20 PM EDT [facility] Comment:Results verified by repeat testing Alkaline Phosphatase 137(H) 42 - 121 unit/L LAB CHEMISTRY METHOD 07/10/2024 11:20 PM [facility] Total Protein 8.4(H) 6.0 - 8.0 g/dL LAB CHEMISTRY METHOD [facility]24 [facility] Albumin 4.1 3.2 - 5.0 g/dL LAB CHEMISTRY METHOD 07/10/2024 11:20 PM [facility] Total Bilirubin 0.4 0.0 - 1.4 mg/dL LAB CHEMISTRY METHOD 07/10/2024 11:20 PM [facility] Blood Venous blood specimen / Unknown Venipuncture / Unknown 07/10/2024 10:15 PM EDT 07/10/2024 10:34 PM EDT us Lucia Lim DO LAB BLOOD ORDERABLES Tonia l Result [facility] [address] [place] [address], [place] [phone] from Last 3 Months Insurance MEDICAID - [place] Care Teams Bicycle Repair Technician Relationship Specialty Start Date End Date Estill, MD Allegra [address] [place] [address] [phone] PCP - General 01/19/21
--- OUTSIDE RECORDS SUMMARY | 2024-08-31 09:00 | XMS_ITS | Encounter Summary ---
Author Organization [facility] Address [address] [place] [address] [address] [place] [address] Care Team Providers Care Hospital Chief Financial Officer Name Role Phone Allegra Yip MD Primary Care Provider [phone] Voila Puente Unavailable [phone] Encounter Details Date Type Department Care Team (Late st Contact Info) Description 11/23/2022 Abstract [facility] [address] [place], [place] [phone] Allegra Yip MD [address] [place] [address] Social History Tobacco Use Types Packs/Day Years [...] on filedocumented in this encounter Care Teams Hospital Chief Financial Officer Relationship Specialty Start Date End Date Allegra Yip MD [address] [place] [address] PCP - General Family Medicine 04/29/18 Viola Puente [address] General Surgery 07/23/24 documented as of this encounter
--- OUTSIDE RECORDS SUMMARY | 2024-08-31 09:00 | XMS_ITS | Encounter Summary ---
Author Organization [facility] Address [address] [place] [address] [address] [place] [address] Care Team Providers Care Dental Secretary Name Role Phone Allegra Yip MD Primary Care Provider [phone] Viola Puente [facility] [phone] Encounter Details Date Type Department Care Team (Late st Contact Info) Description 06/04/2022 Abstract [facility] [address] [place], [place] [phone] Allegra Yip MD [address] [place], [place] [phone] Social History Tobacco Use Types Packs/Day Years [...] on filedocumented in this encounter Care Teams Dental Secretary Relationship Specialty Start Date End Date Allegra Yip MD [address] [place], [place] [phone] PCP - General Family Medicine 04/29/18 Viola Puente [address] [place] [address] General Surgery 07/23/24 documented as of this encounter
[2024-08-31 12:12] LABS: TSH reflex Free T4 0.76 uIU/mL (0.32-4.0)
[2024-08-31 12:45] LABS: Alanine Aminotransferase 20 U/L (0-31); Albumin Level 4.2 g/dL (3.5-5.0); Aspartate Amino Transferase 30 U/L (5-31); Bilirubin Direct 0.3 mg/dL (0.0-0.5); Bilirubin Total 0.8 mg/dL (0.0-1.0); Cholesterol 161 mg/dL (<200); HDL Cholesterol 47 mg/dL (>40); LDL Cholesterol Calculated 92 mg/dL (<100); Total Protein 7.8 g/dL (6.5-8.0); Triglycerides 111 mg/dL (<150)
[2024-08-31 13:06] LABS: Alkaline Phosphatase 78 U/L (39-117)
[2024-09-03 14:33] LABS: Thyroid Stimulating Immunoglob <89 % baseline (<140)
[2024-09-04 03:19] LABS: Thyroxine Binding Globulin 16.8 mcg/mL (13.5-30.9)
== END 2024-08-31 08:39 | disposition home or self-care (01) ==
LOC: HO.HHCL 08:38
PROVIDERS: Visit Provider Family Medicine
DX: E78.5 Hyperlipidemia, unspecified (principal); R74.01 Elevation of levels of liver transaminase levels; E78.00 Pure hypercholesterolemia, unspecified
CPT/HCPCS: 36415; 80061; 80076; 84442; 84443; 84445